=== PATIENT | female | born 1995 | race Caucasian/White ===

== ENCOUNTER 2017-12-09 18:36 | Emergency (ER) | payer OTHER ==
--- NOTE | 2017-12-09 19:09 | ED Physician Documentation ---
History of Present Illness - Stated complaint Stated Complaint: WEAKNESS - Chief complaint Chief Complaint: General - History obtained from History obtained from: Patient - History of Present Illness Timing: Today (Woke from a nap at 1730 today with weak/dizzy/sweats. Weakness is general, does not lateralize. Sudden onset global headache, not WHOL. Feels hot. Dizzyness is positional lightheadedness. One episode of vomiting.) Review of Systems Ten Systems: 10 systems reviewed and negative Constitutional: denies: Fever, Chills Cardiac: denies: Chest pain / pressure, Palpitations Respiratory: denies: Dyspnea, Cough GI: reports: Nausea, Vomiting. 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 : None HEENT: None Psych: None Musculoskeletal: None Derm: None - Past Surgical History Past Surgical History: No - Present Medications Home Medications: Ambulatory Orders Medication Instructions Recorded Confirmed Pnv No.122/Iron/Folic Acid 1 tab PO DAILY 06/29/16 06/29/16 [ Multi Tablet] Pnv95/Ferrous Fumarate/FA 1 each PO DAILY #30 tablet 06/29/16 [ Tablet] - Allergies Allergies/Adverse Reactions: Allergies Allergy/AdvReac Type Severity Reaction Status Date / Time No Known Drug Allergies Allergy Verified 12/09/17 18:46 - Social History Does the pt smoke?: No Smoking Status: Never smoker Does the pt drink ETOH?: No Does the pt have substance abuse?: No - Family History Family history: reports: Non contributory - Immunizations Immunizations are current?: Yes - POLST Patient has POLST: No PD ED PE NORMAL - Vitals Vital signs reviewed: Yes - General General: Alert and oriented X 3, No acute distress - HEENT HEENT: PERRL, EOMI - Neck Neck: Supple, no meningeal sign, No bony TTP - Cardiac Cardiac: RRR, No murmur - Respiratory Respiratory: No respiratory distress, Clear bilaterally - Abdomen Abdomen: Normal bowel sounds, Soft, Non tender - Back Back: No CVA TTP, No spinal TTP - Derm Derm: Normal color, Warm and dry - Extremities Extremities: No deformity, No tenderness to palpate, No edema, No calf tenderness / cord - Neuro Neuro: Alert and oriented 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, 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 Eye Opening: Spontaneous Motor: Obeys Commands Verbal: Oriented GCS Score: 15 - Psych Psych: Normal mood, Normal affect Results - Vitals Vitals: Vital Signs - 24 hr 12/09/17 12/09/17 12/09/17 18:38 19:53 21:20 Temperature 36.5 C 36.9 C Heart Rate 99 70 84 Respiratory 16 18 16 Rate Blood Pressure 119/80 112/79 111/86 H O2 Saturation 97 99 97 Oxygen O2 Source Room air - Labs Labs: Microbiology 12/09/17 20:30 CSF Culture - Preliminary Cerebral Spinal Fluid Laboratory Tests 12/09/17 12/09/17 12/09/17 19:26 19:26 19:26 WBC 7.8 RBC 4.43 Hgb 13.7 Hct 41.2 MCV 93.0 MCH 31.0 MCHC 33.3 RDW 12.8 Plt Count 284 MPV 7.6 L Neut # 4.6 Lymph # 2.3 Gibson # 0.7 Eos # 0.1 Baso # 0.1 Absolute Nucleated RBC 0.00 Nucleated RBC % 0.1 PT 10.5 INR 0.9 Sodium 139 Potassium 3.8 Chloride 104 Carbon Dioxide 27 Anion Gap 8.0 BUN 14 Creatinine 0.7 Estimated GFR (MDRD) 103 Glucose 97 Calcium 9.5 Total Bilirubin 0.8 AST 22 ALT 25 Alkaline Phosphatase 87 Total Protein 7.0 Albumin 4.5 Globulin 2.5 Albumin/Globulin Ratio 1.8 Lipase 31 Urine Color Urine Clarity Urine pH Ur Specific [place] Urine Protein Urine Glucose (UA) Urine Ketones Urine Occult Blood Urine Nitrite Urine Bilirubin Urine Urobilinogen Ur Leukocyte Esterase Ur Microscopic Review Urine Culture Comments Urine HCG, Qual CSF Color CSF Clarity Xanthrochromic CSF WBC CSF RBC CSF Cell Count Tube # CSF Glucose CSF Total Protein 12/09/17 12/09/17 19:28 20:30 WBC RBC Hgb Hct MCV MCH MCHC RDW Plt Count MPV Neut # Lymph # Gibson # Eos # Baso # Absolute Nucleated RBC Nucleated RBC % PT INR Sodium Potassium Chloride Carbon Dioxide Anion Gap BUN Creatinine Estimated GFR (MDRD) Glucose Calcium Total Bilirubin AST ALT Alkaline Phosphatase Total Protein Albumin Globulin Albumin/Globulin Ratio Lipase Urine Color YELLOW Urine Clarity CLEAR Urine pH 6.5 Ur Specific [place] 1.025 Urine Protein NEGATIVE Urine Glucose (UA) NEGATIVE Urine Ketones NEGATIVE Urine Occult Blood NEGATIVE Urine Nitrite NEGATIVE Urine Bilirubin NEGATIVE Urine Urobilinogen 0.2 (NORMAL) Ur Leukocyte Esterase NEGATIVE Ur Microscopic Review NOT INDICATED Urine Culture Comments NOT INDICATED Urine HCG, Qual NEGATIVE CSF Color COLORLESS CSF Clarity CLEAR Xanthrochromic ABSENT CSF WBC 1 CSF RBC 0 CSF Cell Count Tube # CSF TUBE# 3 CSF Glucose 57 CSF Total Protein 18 - Rads (name of study) CT Head Radiology: Discussed with rads (not C/W SAH. Could be C/W encephalitis.), EMP read contemporaneously (Possible low attenuation area left frontal cortex.) Procedures - Lumbar Puncture Position: Sitting Location: L3-L4 Anesthesia: Local lidocaine CSF: Clear Other: Sterile prep and drape, Patient tolerated well PD MEDICAL DECISION MAKING - ED course ED course: 22-year-old woman with acute onset headache and some other concerning symptoms. Presentation would be most concerning for subarachnoid hemorrhage which was not present on CT, but she did have a possible finding. This was discussed with the radiologist. I asked him what this might represent and he said early encephalitis. Given lack of MRI at this hour, we settled on spinal fluid which was collected. During this procedure patient admitted that recently her aunt had an episode where she had a syncopal episode and was found to have a large brain tumor and this may be weighing on her mind. She after medications here had no residual headache or symptoms and felt normal. Departure - Departure Disposition: 01 Home, Self Care Clinical Impression: Vomiting Qualifiers: Vomiting type: unspecified Vomiting Intractability: non-intractable Nausea presence: with nausea Qualified Code(s): R11.2 - Nausea with vomiting, unspecified Headache Qualifiers: Headache type: tension-type Headache chronicity pattern: acute headache Intractability: not intractable Qualified Code(s): G44.209 - Tension-type headache, unspecified, not intractable Condition: Good Record reviewed to determine appropriate education?: Yes Instructions: ED Cephalgia Unspecified Comments: Call your doctor to arrange a follow-up appointment, make the next available appointment. In the interim, return anytime if worse or if new symptoms develop. Discharge Date/Time: 12/09/17 21:22
[2017-12-09] MEDS ORDERED: HYDROcod/ACETAM 5/325 MG TABLET PO STA (19:17)
[2017-12-09] MEDS ORDERED: ONDANSETRON ODT 4 MG TABLET TL STA (19:17)
[2017-12-09 19:30] LABS: BASOPHILS # (AUTO) 0.1 10^3/uL (0.0-0.1); BASOPHILS % (AUTO) 0.7 %; EOSINOPHILS # (AUTO) 0.1 10^3/uL (0.0-0.7); EOSINOPHILS % (AUTO) 1.8 %; HGB - HEMOGLOBIN 13.7 g/dL (12.0-16.0); LYMPHOCYTES # (AUTO) 2.3 10^3/uL (1.5-3.5); LYMPHOCYTES % (AUTO) 29.2 %; MEAN CORPUSCULAR HGB CONC 33.3 g/dL (32.0-36.0); MEAN PLATELET VOLUME 7.6 fL (7.9-10.8); MONOCYTES # (AUTO) 0.7 10^3/uL (0.0-1.0); MONOCYTES % (AUTO) 9.2 %; NEUTROPHILS # (AUTO) 4.6 10^3/uL (1.5-6.6); NEUTROPHILS % (AUTO) 59.1 %; PLT - PLATELET COUNT 284 10^3/uL (130-450); RED BLOOD COUNT 4.43 10^6/uL (4.20-5.40); RED CELL DISTRIBUTION WIDTH 12.8 % (12.0-15.0); WHITE BLOOD COUNT 7.8 x10^3/uL (4.8-10.8)
[2017-12-09 19:34] LABS: BILIRUBIN,URINE NEGATIVE (NEGATIVE); GLUCOSE, URINE (UA) NEGATIVE (NEGATIVE); KETONES,URINE (UA) NEGATIVE (NEGATIVE); LEUKOCYTE ESTERASE, URINE NEGATIVE (NEGATIVE); NITRITE,URINE NEGATIVE (NEGATIVE); OCCULT BLOOD,URINE NEGATIVE (NEGATIVE); PH,URINE 6.5 PH (5.0-7.5); PROTEIN,URINE NEGATIVE (NEGATIVE); UROBILINOGEN,URINE 0.2 (NORMAL) E.U./dL (NORMAL)
[2017-12-09 19:36] LABS: INR 0.9 (0.8-1.2); PT - PROTHROMBIN TIME 10.5 secs (9.9-12.6)
[2017-12-09 19:38] LABS: CLARITY,URINE CLEAR (CLEAR); HCG UR QUAL NEGATIVE
[2017-12-09 19:43] LABS: ALBUMIN 4.5 g/dL (3.2-5.5); ALBUMIN/GLOBULIN RATIO 1.8 (1.0-2.2); BILIRUBIN,TOTAL 0.8 mg/dL (0.2-1.0); CALCIUM 9.5 mg/dL (8.5-10.3); CREATININE 0.7 mg/dL (0.4-1.0)
--- NOTE | 2017-12-09 20:09 | CT Preliminary Report ---
Exam: CT HEAD W/O Impression: Question of subtle, at the limits of detection, low attenuation in the right frontal cortex, ill defi debby. Brain MRI with and without contrast to be considered. SITE ID: [id number]
--- NOTE | 2017-12-09 20:13 | CT Report ---
EXAM: CT HEAD WITHOUT CONTRAST COMPARISON: None. CLINICAL HISTORY: Head pressure, dizziness, weak, vomiting,headache. TECHNIQUE: Axial CT images were obtained from the foramen magnum to the vertex without contrast. In accordance with CT protocol optimization, one or more of the following dose reduction techniques w ere utilized for this exam: automated exposure control, adjustment of mA and/or KV based on patient s ize, or use of iterative reconstructive technique. FINDINGS: No intracranial hemorrhage. No masses. No unexpected intra-or extra-axial fluid collections. Ventricular size is normal. There is subtle, at the limits of detection, ill-defined low-attenuation in the right frontal cortex, brain MRI with and without contrast to be considered. No dense vessels. No lytic or blastic bone lesions are seen. Visualized orbits, paranasal sinuses and mastoids are unremarkable. IMPRESSION: Question of subtle, at the limits of detection, low attenuation in the right frontal cortex, ill defi debby. Brain MRI with and without contrast to be considered. Referring Provider Line: [phone] SITE ID: [id number]
[2017-12-09] MEDS ORDERED: LIDOCAINE 2% 10 ML MDV ONE (20:36)
[2017-12-09 21:08] LABS: CSF TUBE # CSF TUBE# 3
[2017-12-09 21:09] LABS: CLARITY,CSF CLEAR (CLEAR); COLOR,CSF COLORLESS (COLORLESS); CSF XANTHOCHROMIA ABSENT (ABSENT); RED BLOOD CELL,CSF 0 /mm^3 (0-1); WHITE BLOOD CELL,CSF 1 /mm^3 (0-5)
[2017-12-09 21:15] LABS: CSF - GLUCOSE 57 mg/dL (45-70)
[2017-12-09 21:22] VITALS: BP 111/86
[2017-12-15 01:51] LABS: HSV 2 DNA NOT DETECTED; SOURCE CEREBROSPINAL FLUID
== END 2017-12-09 21:22 | disposition home or self-care (01) ==
LOC: ED 18:36
DX: G44.209 Tension-type headache, unspecified, not intractable (principal); R11.2 Nausea with vomiting, unspecified; R42 Dizziness and giddiness
CPT/HCPCS: 62270; 70450; 80053; 81003; 81025; 82945; 83690; 84157; 85025; 85610; 87070; 87205; 87529; 89051; 99283; 99284; A9270; Q0162; 81001; 87086

== ENCOUNTER 2018-02-04 16:13 | Inpatient (IN) | payer OTHER ==
[2018-02-04 17:09] LABS: BASOPHILS % (AUTO) 0.1 %; HGB - HEMOGLOBIN 13.9 g/dL (12.0-16.0); LYMPHOCYTES # (AUTO) 0.7 10^3/uL (1.5-3.5); MEAN CORPUSCULAR HEMOGLOBIN 31.4 pg (27.0-31.0); MEAN CORPUSCULAR HGB CONC 33.8 g/dL (32.0-36.0); MEAN CORPUSCULAR VOLUME 92.8 fL (81.0-99.0); MEAN PLATELET VOLUME 8.2 fL (7.9-10.8); MONOCYTES # (AUTO) 0.9 10^3/uL (0.0-1.0); MONOCYTES % (AUTO) 6.8 %; NEUTROPHILS % (AUTO) 88.1 %; PLT - PLATELET COUNT 251 10^3/uL (130-450); RED BLOOD COUNT 4.44 10^6/uL (4.20-5.40); RED CELL DISTRIBUTION WIDTH 12.5 % (12.0-15.0); WHITE BLOOD COUNT 13.7 x10^3/uL (4.8-10.8)
[2018-02-04 17:12] LABS: BILIRUBIN,URINE NEGATIVE (NEGATIVE); GLUCOSE, URINE (UA) NEGATIVE (NEGATIVE); KETONES,URINE (UA) NEGATIVE (NEGATIVE); LEUKOCYTE ESTERASE, URINE NEGATIVE (NEGATIVE); NITRITE,URINE NEGATIVE (NEGATIVE); OCCULT BLOOD,URINE NEGATIVE (NEGATIVE); PROTEIN,URINE NEGATIVE (NEGATIVE); UROBILINOGEN,URINE 0.2 (NORMAL) E.U./dL (NORMAL)
--- NOTE | 2018-02-04 17:13 | XRAY Report ---
Procedure Date: 02/04/2018 Accession Number: [id number] / [id number] Procedure: XR - Chest 1 View X-Ray CPT Code: 04060 FULL RESULT: EXAM: CHEST RADIOGRAPHY EXAM DATE: 02/04/2018 04:55 PM. CLINICAL HISTORY: Fever, right sided chest pain. COMPARISON: 02/04/2018. TECHNIQUE: 1 view. FINDINGS: Lungs/Pleura: No focal opacities evident. No pleural effusion. No pneumothorax. Mediastinum: Within exam limitations, the cardiomediastinal contour is normal. Other: None. IMPRESSION: Normal single view chest. RADIA
[2018-02-04 17:15] LABS: CLARITY,URINE CLEAR (CLEAR)
[2018-02-04 17:17] LABS: ALBUMIN 4.4 g/dL (3.2-5.5); ALBUMIN/GLOBULIN RATIO 1.5 (1.0-2.2); BILIRUBIN,TOTAL 0.7 mg/dL (0.2-1.0); CALCIUM 9.2 mg/dL (8.5-10.3); CREATININE 0.6 mg/dL (0.4-1.0); TOTAL PROTEIN 7.4 g/dL (6.7-8.2)
[2018-02-04] MEDS ORDERED: SODIUM CHLORIDE 0.9% 1,000 ML IV ONE ×2 (17:22→18:27)
[2018-02-04] MEDS ORDERED: ACETAMINOPHEN 325 MG TABLET PO STA (17:22)
[2018-02-04] MEDS ORDERED: VANCOMYCIN INJ 1 GM in SODIUM CHLORIDE 0.9% 500 ML IV STA (17:27)
[2018-02-04] MEDS ORDERED: KETOROLAC 60 MG/2 ML VIAL IVP STA (18:25)
--- NOTE | 2018-02-04 19:24 | ED Physician Documentation ---
History of Present Illness - Stated complaint Stated Complaint: R SIDE PX - Chief complaint Chief Complaint: General - History obtained from History obtained from: Patient - History of Present Illness Timing: Today - Additonal information Additional information: Patient is a 23 year old female with no significant past medical history who is presenting to the emergency department for fever and right sided breast pain. patient states that she is still breast feeding and that the symptoms started this morning. Patient stated that she felt warm and that she had flu like symptoms. patient denies having symptoms like this before in the past. Review of Systems Constitutional: reports: Fever, Chills, Myalgias Eyes: reports: Reviewed and negative Ears: denies: Ear pain, Drainage/discharge Nose: denies: Congestion Throat: denies: Sore throat Cardiac: denies: Chest pain / pressure Respiratory: denies: Dyspnea, Cough, Wheezing GI: denies: Nausea, Vomiting : denies: Dysuria, Frequency, Hesitancy Skin: reports: Rash Neurologic: reports: Generalized weakness. 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 HEENT: None Psych: None Musculoskeletal: None Derm: None - Past Surgical History Past Surgical History: No - Present Medications Home Medications: Ambulatory Orders Medication Instructions Recorded Confirmed Pnv No.122/Iron/Folic Acid 1 tab PO DAILY 06/29/16 06/29/16 [ Multi Tablet] Pnv95/Ferrous Fumarate/FA 1 each PO DAILY #30 tablet 06/29/16 [ Tablet] - Allergies Allergies/Adverse Reactions: Allergies Allergy/AdvReac Type Severity Reaction Status Date / Time No Known Drug Allergies Allergy Verified 12/09/17 18:46 - Social History Does the pt smoke?: No Smoking Status: Never smoker Does the pt drink ETOH?: No Does the pt have substance abuse?: No - Immunizations Immunizations are current?: Yes - POLST Patient has POLST: No PD ED PE NORMAL - Vitals Vital signs reviewed: Yes - General General: Alert and oriented X 3 - HEENT HEENT: Atraumatic - Neck Neck: Supple, no meningeal sign - Extremities Extremities: No deformity - Neuro Neuro: Alert and oriented X 3, No motor deficit, Normal speech Eye Opening: Spontaneous Motor: Obeys Commands - Psych Psych: Normal mood PD ED PE EXPANDED - General General: Alert - HEENT HEENT: Dry mucous membranes - Cardiac Cardiac: Tachy, Chest wall TTP (mild tenderness to palpation of right breast) - Respiratory Respiratory: Clear to ausultation joseph - Abdomen Abdomen: No: Tender to palpation, Rebound, Guarding - Derm Derm: Rash (mild erythema, of right breast) Results - Vitals Vitals: Vital Signs - 24 hr 02/04/18 02/04/18 02/04/18 16:20 17:12 17:52 Temperature 37.9 C H 39 C H 39.2 C H Heart Rate 140 H 129 H 134 H Respiratory 18 26 H 19 Rate Blood Pressure 114/70 111/71 99/74 O2 Saturation 97 99 98 02/04/18 02/04/18 18:26 19:20 Temperature 39.4 C H 38.3 C H Heart Rate 132 H 139 H Respiratory 28 H 21 Rate Blood Pressure 103/62 100/51 L O2 Saturation 96 97 Oxygen O2 Source Room air - Labs Labs: Laboratory Tests 02/04/18 02/04/18 02/04/18 16:47 16:47 16:47 WBC 13.7 H RBC 4.44 Hgb 13.9 Hct 41.2 MCV 92.8 MCH 31.4 H MCHC 33.8 RDW 12.5 Plt Count 251 MPV 8.2 Neut # (Auto) 12.0 H Lymph # (Auto) 0.7 L [place] # (Auto) 0.9 Eos # (Auto) 0.0 Baso # (Auto) 0.0 Absolute Nucleated RBC 0.00 Nucleated RBC % 0.0 Sodium 136 Potassium 3.4 L Chloride 105 Carbon Dioxide 23 Anion Gap 8.0 BUN 15 Creatinine 0.6 Estimated GFR (MDRD) 122 Glucose 133 H Lactic Acid 2.7 H Calcium 9.2 Total Bilirubin 0.7 AST 27 ALT 26 Alkaline Phosphatase 74 Total Protein 7.4 Albumin 4.4 Globulin 3.0 Albumin/Globulin Ratio 1.5 Lipase 27 Urine Color Urine Clarity Urine pH Ur Specific [place] Urine Protein Urine Glucose (UA) Urine Ketones Urine Occult Blood Urine Nitrite Urine Bilirubin Urine Urobilinogen Ur Leukocyte Esterase Ur Microscopic Review Urine Culture Comments Influenza A (Rapid) Influenza B (Rapid) 02/04/18 02/04/18 17:09 17:09 WBC RBC Hgb Hct MCV MCH MCHC RDW Plt Count MPV Neut # (Auto) Lymph # (Auto) [place] # (Auto) Eos # (Auto) Baso # (Auto) Absolute Nucleated RBC Nucleated RBC % Sodium Potassium Chloride Carbon Dioxide Anion Gap BUN Creatinine Estimated GFR (MDRD) Glucose Lactic Acid Calcium Total Bilirubin AST ALT Alkaline Phosphatase Total Protein Albumin Globulin Albumin/Globulin Ratio Lipase Urine Color YELLOW Urine Clarity CLEAR Urine pH 7.0 Ur Specific [place] 1.015 Urine Protein NEGATIVE Urine Glucose (UA) NEGATIVE Urine Ketones NEGATIVE Urine Occult Blood NEGATIVE Urine Nitrite NEGATIVE Urine Bilirubin NEGATIVE Urine Urobilinogen 0.2 (NORMAL) Ur Leukocyte Esterase NEGATIVE Ur Microscopic Review NOT INDICATED Urine Culture Comments NOT INDICATED Influenza A (Rapid) Negative Influenza B (Rapid) Negative PD MEDICAL DECISION MAKING - ED course Complexity details: reviewed old records, reviewed results, re-evaluated patient , considered differential, d/w patient, d/w senior health consultant ED course: patient was seen and examined at bedside. Patient was placed on a monitor. Iv access was gained and labs were drawn. Patient was started on a fluid bolus. chest x-ray was performed and was within normal limits. blood cultures were drawn and urine was collected. Patient's did have a leukocytosis and lactic acidosis. patient was started on a second liter of fluid. chest x-ray was within normal limits. Patient's only symptoms was the breast pain so patient was started on vancomycin for mastitis. Hospitalist was contacted and the case was discussed with her. patient was admitted for further evaluation and care. - Sepsis Event Vital Signs: Vital Signs - 24 hr 02/04/18 02/04/18 02/04/18 16:20 17:12 17:52 Temperature 37.9 C H 39 C H 39.2 C H Heart Rate 140 H 129 H 134 H Respiratory 18 26 H 19 Rate Blood Pressure 114/70 111/71 99/74 O2 Saturation 97 99 98 02/04/18 02/04/18 18:26 19:20 Temperature 39.4 C H 38.3 C H Heart Rate 132 H 139 H Respiratory 28 H 21 Rate Blood Pressure 103/62 100/51 L O2 Saturation 96 97 Oxygen O2 Source Room air Departure - Departure Disposition: 66 [facility] DC/Xfer Clinical Impression: Mastitis during , SIRS (systemic inflammatory response syndrome) Condition: Stable Discharge Date/Time: 02/04/18 20:30
[2018-02-04] MEDS ORDERED: SODIUM CHLORIDE FLUSH 0.9% 10 ML SYRINGE IVP PRN (19:33)
[2018-02-04] MEDS ORDERED: PROCHLORPERAZINE 10 MG/2 ML VIAL IVP PRN (19:33)
[2018-02-04] MEDS ORDERED: CEFEPIME 2 GM in SODIUM CHLORIDE 0.9% MINIBAG 100 ML IV STA (19:38)
[2018-02-04] MEDS ORDERED: VANCOMYCIN PER PHARMACY 0.1 GM in SODIUM CHLORIDE 0.9% 250 ML IV STA (19:38)
[2018-02-04] MEDS ORDERED: ACETAMINOPHEN 1,000 MG/100 ML 100 ML IV PRN (19:50)
[2018-02-04 20:11] LABS: INR 1.2 (0.8-1.2); PT - PROTHROMBIN TIME 13.2 secs (9.9-12.6)
[2018-02-04] MEDS ORDERED: VANCOMYCIN PER PHARMACY 0.1 GM in SODIUM CHLORIDE 0.9% 250 ML IV SCH (20:17)
[2018-02-04] MEDS: D5NS W/20 MEQ KCL 1,000 ML IV SCH (20:42)
[2018-02-04] MEDS: ceFAZolin 2 GM/50 ML 2 GM/50 ML BAG IV SCH (20:42)
[2018-02-04] MEDS ORDERED: FAMOTIDINE 20 MG/50 ML 50 ML IV SCH (21:00)
[2018-02-04] MEDS: metroNIDAZOLE 500 MG/100 ML 500 MG/100 ML BAG IV SCH (21:30)
[2018-02-04 22:57] LABS: ALBUMIN 3.1 g/dL (3.2-5.5); ALBUMIN/GLOBULIN RATIO 1.2 (1.0-2.2); BILIRUBIN,TOTAL 0.6 mg/dL (0.2-1.0); CALCIUM 7.9 mg/dL (8.5-10.3); CREATININE 0.8 mg/dL (0.4-1.0); TOTAL PROTEIN 5.7 g/dL (6.7-8.2)
--- NOTE | 2018-02-05 00:25 | HISTORY & PHYSICAL EXAMINATION ---
DATE OF SERVICE: 02/04/2018 Physician: Rere Garcia MD HISTORY OF PRESENT ILLNESS: This is a 23-year-old white female with a negative past medical history. She is breast feeding her second baby, who is nearly 1-year-old. This morning she awoke with pain in the right lateral breast area, and as the day went on she felt more weak and tired with worse pain in the right breast and axillary area, to the point of being unable to raise the right arm without severe pain. She started to have shaking chills and presented to the emergency room. She was found to have a fever of 39.4, tachycardic at a heart rate of 140 in sinus tachycardia, with borderline low blood pressure of 99/74. The right breast was felt to be the source of an infection and blood tests showed an elevated lactic acid level and she is being admitted for sepsis and mastitis. PAST MEDICAL HISTORY: Negative. ALLERGIES: NONE. MEDICATIONS: vitamins and control pills. FAMILY HISTORY: No inherited diseases. SOCIAL HISTORY: She is a nonsmoker, who never smoked, uses no alcohol, uses no illicit drugs. She lives at home with her , 3-year-old child, and a [id number] child. REVIEW OF SYSTEMS: A comprehensive review of systems was performed and the pertinent positives are in the HPI. PHYSICAL EXAMINATION GENERAL: Young white female who is in mild distress. VITAL SIGNS: Blood pressure 109/67, heart rate 110-126 in sinus tachycardia. Current temperature 37.7, respiratory rate 15, room air saturation 97%. HEENT: Unremarkable. Oral mucosa is moist. NECK: Without JVD or carotid bruits. LUNGS: Clear. HEART: Sounds normal. No murmur. BREASTS: The right breast has an area of redness in the right lateral area and the right breast is edematous and mildly tender to touch. The left breast appears normal. There is no axillary pain or adenopathy. ABDOMEN: Soft with positive bowel sounds. Nontender. EXTREMITIES: No edema. NEUROLOGIC: Intact. LABORATORY DATA: Normal electrolytes except potassium 3.4. Lactic acid 2.7. INR 1.2. Liver tests normal. White blood count 13.7 with a left shift, hemoglobin 13.9, platelet count 251. Urinalysis unremarkable. Influenza A and B negative. Chest x-ray: No active disease. IMPRESSION 1. Sepsis by virtue of fever, elevated WBC and lactic acid level, and signs of infection. 2. Mastitis. The patient states that she has been trying all day to "unplug the right breast and thinks that she has just accomplished this", the milk was thrown out. 3. Tachycardia. This is likely from her fever and possible volume depletion. PLAN 1. Admit the patient to the ICU, on telemetry. 2. Continue IV fluids with aggressive crystalloid volume placement 3. Continue a sepsis bundle, including followup of her lactic acid level in 3 hours and 6 hours. 4. Begin antibiotics, focused at the mastitis as the source. Therefore, will use Vancomycin and Ancef and Flagyl (per Sepsis protocol) 5. Blood cultures were already obtained in the emergency room, two sets. 6. We will also try to obtain a sample of milk ejection from the right breast for bacterial culture. 7. Follow her sedimentation rate, CMP, and CBC daily. CODE STATUS: FULL CODE. DEEP VENOUS THROMBOSIS PROPHYLAXIS: SCDs. ATTESTATION: The patient is expected to be discharged or transferred to another facility within 96 hours: Yes. TD: 02/04/2018 22:55 GEN
[2018-02-05] MEDS: SODIUM CHLORIDE FLUSH 0.9% 10 ML SYRINGE IVP SCH ×3 (01:51→16:44)
[2018-02-05] MEDS ORDERED: VANCOMYCIN INJ 0.75 GM in SODIUM CHLORIDE 0.9% 250 ML IV SCH (02:00)
[2018-02-05] MEDS: ceFAZolin 2 GM/50 ML 2 GM/50 ML BAG IV SCH (04:26)
[2018-02-05] MEDS: IBUPROFEN 600 MG TABLET PO PRN ×2 (04:32→12:26)
[2018-02-05] MEDS: metroNIDAZOLE 500 MG/100 ML 500 MG/100 ML BAG IV SCH (05:06)
[2018-02-05 05:41] LABS: BASOPHILS % (AUTO) 0.2 %; EOSINOPHILS % (AUTO) 0.1 %; HGB - HEMOGLOBIN 11.6 g/dL (12.0-16.0); LYMPHOCYTES # (AUTO) 1.2 10^3/uL (1.5-3.5); LYMPHOCYTES % (AUTO) 8.5 %; MEAN CORPUSCULAR HEMOGLOBIN 31.3 pg (27.0-31.0); MEAN CORPUSCULAR HGB CONC 33.3 g/dL (32.0-36.0); MEAN CORPUSCULAR VOLUME 94.2 fL (81.0-99.0); MEAN PLATELET VOLUME 7.5 fL (7.9-10.8); MONOCYTES % (AUTO) 7.1 %; NEUTROPHILS # (AUTO) 12.2 10^3/uL (1.5-6.6); NEUTROPHILS % (AUTO) 84.1 %; PLT - PLATELET COUNT 204 10^3/uL (130-450); RED CELL DISTRIBUTION WIDTH 12.6 % (12.0-15.0); WHITE BLOOD COUNT 14.5 x10^3/uL (4.8-10.8)
[2018-02-05 05:54] LABS: CALCIUM 7.8 mg/dL (8.5-10.3); CREATININE 0.7 mg/dL (0.4-1.0); MAGNESIUM 1.8 mg/dL (1.7-2.8); PHOSPHORUS 1.6 mg/dL (2.5-4.6)
[2018-02-05] MEDS ORDERED: POTASSIUM CHLORIDE 20 MEQ TABLET PO ONE (06:26)
[2018-02-05] MEDS: NEUTRA-PHOS 250 MG TABLET PO SCH ×2 (06:53→08:52)
[2018-02-05] MEDS ORDERED: FAMOTIDINE 20 MG TABLET PO SCH (08:00)
[2018-02-05] MEDS: D5NS W/20 MEQ KCL 1,000 ML IV SCH ×2 (08:53→16:43)
[2018-02-05] MEDS: VANCOMYCIN INJ 1 GM in SODIUM CHLORIDE 0.9% 250 ML IV SCH ×2 (10:11→18:17)
--- NOTE | 2018-02-05 12:09 | PROVIDER PROGRESS NOTE ---
Assessment/Plan - Problem List (1) Sepsis Qualifiers: Sepsis type: sepsis due to unspecified organism Qualified Code(s): A41.9 - Sepsis, unspecified organism Assessment/Plan: Patient presented with fever of 39.4, tachycardia of 132, tachypneic at respiratory rate of 28 and with borderline hypotension. On presentation the patient's lactic acid was elevated at 2.7 and her white blood cell count was 13.7. The patient had sepsis and source appeared to be mastitis. Patient has been breast-feeding and began having pain in the right breast with swelling. The patient was admitted to the intensive care unit for severe sepsis due to mastitis. Plan: Continue IV vancomycin for treatment of mastitis Follow-up breast milk culture Continue to encourage patient to pump breastmilk to ensure that no ducts do not get clogged IVFs (2) Mastitis Assessment/Plan: Presented with sepsis Started on IV vancomycin for severe infection Awaiting milk cultures Switch to Med/Surg status Still tachycardic today WBC worsening Feels better Still tachycardic Likely needs 1 more day of IV abx and then can consider switching to PO abx at discharge - Current Meds Current Meds: Current Medications Generic Name Dose Route Start Last Admin Trade Name Freq PRN Reason Stop Dose Admin Potassium Chloride/Dextrose/Sod Cl 1,000 mls @ 150 mls/hr 02/04/18 20:00 05/16 08:53 IV 150 mls/hr .[id number] DERIK Administration Vancomycin HCl 1 gm/ Sodium 250 mls @ 130 mls/hr 02/05/18 10:00 02/05/18 10: 11 Chloride IV 130 mls/hr Q8H DERIK Administration Ibuprofen 600 mg 02/04/18 19:33 02/05/18 04:32 Motrin PO 600 mg Q6HR PRN Administration Pain 1 to 4 Sodium Chloride 10 ml 02/05/18 01:00 02/05/18 08:54 Normal Saline Flush 0.9% IVP 10 ml 0100,[id number],1700 DERIK Administration Sodium Chloride 10 ml 02/04/18 19:33 02/04/18 20:44 Normal Saline Flush 0.9% IVP 10 ml PRN PRN Administration NEEDED PER PROVIDER ORDERS - Lab Result Lab results reviewed: Yes Fish Bone Diagrams: 02/05/18 05:30 07/10/18 05:30 - Diagnostic Imaging Results Diagnostic Imaging Results: Final report reviewed - Additional Planning Condition/Complexity: Stable My Orders: My Active Orders 02/05/18 07:45 Acetaminophen [Tylenol] 650 mg PO Q4HR PRN 02/05/18 11:00 Vitamin [Trinatal Rx 1] 1 tab PO DAILYWM Saccharomyces Boulardii [Florastor] 250 mg PO BIDWM Plan Discussed with:: Patient Time Spent: 31-60 minutes Subjective - Subjective Patient Reports: Feeling Better, Resting Comfortably, Other (She states that her pain in right breast has improved and she feels like the clogged up duct has unclogged.) Nursing Reports: No Complaints Objective Vital Signs: Vital Signs - 24 hr 02/04/18 02/04/18 02/04/18 20:27 21:00 22:00 Temperature 37.7 C H Heart Rate [ 137 H 126 H 109 H Monitoring electrodes] Respiratory 15 24 15 Rate Blood Pressure 109/60 112/69 109/67 [Right Brachial artery] O2 Saturation 97 02/04/18 02/05/18 02/05/18 23:00 00:00 01:00 Temperature Heart Rate [ 98 106 H 105 H Monitoring electrodes] Respiratory 16 17 16 Rate Blood Pressure 90/57 L 107/65 109/73 [Right Brachial artery] O2 Saturation 02/05/18 02/05/18 02/05/18 01:54 02:00 03:00 Temperature 37.1 C Heart Rate [ 114 H 112 H 113 H Monitoring electrodes] Respiratory 21 21 30 H Rate Blood Pressure 98/61 100/57 L [Right Brachial artery] O2 Saturation 97 02/05/18 02/05/18 02/05/18 04:00 04:34 05:09 Temperature 37.4 C Heart Rate [ 110 H 135 H 128 H Monitoring electrodes] Respiratory 19 27 H 25 H Rate Blood Pressure 106/63 113/73 [Right Brachial artery] O2 Saturation 02/05/18 02/05/18 02/05/18 06:00 07:00 08:00 Temperature 37.1 C Heart Rate [ 104 H 104 H 106 H Monitoring electrodes] Respiratory 16 16 20 Rate Blood Pressure 95/61 112/80 110/72 [Right Brachial artery] O2 Saturation 98 02/05/18 02/05/18 02/05/18 09:00 10:00 12:00 Temperature 36.8 C Heart Rate [ 110 H 104 H 100 Monitoring electrodes] Respiratory 16 12 16 Rate Blood Pressure 97/61 99/63 117/68 [Right Brachial artery] O2 Saturation 97 Oxygen O2 Source Room air I&O (Last 24 Hrs): Intake and Output Totals x24h 02/03/18 02/04/18 02/05/18 23:59 23:59 23:59 Intake Total 450 2180 Output Total 750 Balance 450 1430 General: Alert, Oriented x3, Cooperative HEENT: Atraumatic, PERRLA, EOMI, Mucous membr. moist/pink Neck: Supple, No JVD, No thyromegaly, +2 carotid pulse wo bruit Lymphatic: no adenopathy Neuro: Alert, Non Focal, CN 2-12 Grossly Intact, Oriented Times 3 Cardiovascular: No murmurs, Other (Tachycardic) Respiratory: Chest non-tender, No respiratory distress, Breath sounds nml Abdomen: Normal bowel sounds, Soft, No tenderness, No hepatospenomegaly Extremities: No clubbing, No cyanosis, No edema, Normal pulses, No tenderness/ swelling Comments/Notes: No obvious breast swelling or erythema - Results Results: Laboratory Results WBC 14.5 x10^3/uL (4.8-10.8) H 02/05/18 05:30 RBC 3.70 10^6/uL (4.20-5.40) L 02/05/18 05:30 Hgb 11.6 g/dL (12.0-16.0) L 02/05/18 05:30 Hct 34.9 % (37.0-47.0) L 02/05/18 05:30 MCV 94.2 fL (81.0-99.0) 02/05/18 05:30 MCH 31.3 pg (27.0-31.0) H 02/05/18 05:30 MCHC 33.3 g/dL (32.0-36.0) 02/05/18 05:30 RDW 12.6 % (12.0-15.0) 02/05/18 05:30 Plt Count 204 10^3/uL (130-450) 02/05/18 05:30 MPV 7.5 fL (7.9-10.8) L 02/05/18 05:30 Neut # (Auto) 12.2 10^3/uL (1.5-6.6) H 02/05/18 05:30 Lymph # (Auto) 1.2 10^3/uL (1.5-3.5) L 02/05/18 05:30 [place] # (Auto) 1.0 10^3/uL (0.0-1.0) 02/05/18 05:30 Eos # (Auto) 0.0 10^3/uL (0.0-0.7) 02/05/18 05:30 Baso # (Auto) 0.0 10^3/uL (0.0-0.1) 02/05/18 05:30 Absolute Nucleated RBC 0.00 x10^3/uL 02/05/18 05:30 Nucleated RBC % 0.0 /100WBC 02/05/18 05:30 ESR 10 mm/Hr (0-20) 02/05/18 05:30 PT 13.2 secs (9.9-12.6) H 02/04/18 19:57 INR 1.2 (0.8-1.2) 02/04/18 19:57 APTT 27.9 secs (24.9-33.3) 02/04/18 19:57 Sodium 137 mmol/L (135-145) 02/05/18 05:30 Potassium 3.3 mmol/L (3.5-5.0) L 02/05/18 05:30 Chloride 111 mmol/L (101-111) 02/05/18 05:30 Carbon Dioxide 21 mmol/L (21-32) 02/05/18 05:30 Anion Gap 5.0 (6-13) L 02/05/18 05:30 BUN 9 mg/dL (6-20) 02/05/18 05:30 Creatinine 0.7 mg/dL (0.4-1.0) 02/05/18 05:30 Estimated GFR (MDRD) 102 (>89) 02/05/18 05:30 Glucose 134 mg/dL (70-100) H 02/05/18 05:30 Lactic Acid 1.6 mmol/L (0.5-2.2) 02/05/18 05:30 Calcium 7.8 mg/dL (8.5-10.3) L 02/05/18 05:30 Phosphorus 1.6 mg/dL (2.5-4.6) L 02/05/18 05:30 Magnesium 1.8 mg/dL (1.7-2.8) 02/05/18 05:30 Total Bilirubin 0.6 mg/dL (0.2-1.0) 02/04/18 22:41 AST 24 IU/L (10-42) 02/04/18 22:41 ALT 20 IU/L (10-60) 02/04/18 22:41 Alkaline Phosphatase 50 IU/L (42-121) 02/04/18 22:41 Total Protein 5.7 g/dL (6.7-8.2) L 02/04/18 22:41 Albumin 3.0 g/dL (3.2-5.5) L 02/05/18 05:30 Globulin 2.6 g/dL (2.1-4.2) 02/04/18 22:41 Albumin/Globulin Ratio 1.2 (1.0-2.2) 02/04/18 22:41 Lipase 27 U/L (22-51) 02/04/18 16:47 Urine Color YELLOW 02/04/18 17:09 Urine Clarity CLEAR (CLEAR) 02/04/18 17:09 Urine pH 7.0 PH (5.0-7.5) 02/04/18 17:09 Ur Specific [place] 1.015 (1.002-1.030) 02/04/18 17:09 Urine Protein NEGATIVE mg/dL (NEGATIVE) 02/04/18 17:09 Urine Glucose (UA) NEGATIVE mg/dL (NEGATIVE) 02/04/18 17:09 Urine Ketones NEGATIVE mg/dL (NEGATIVE) 02/04/18 17:09 Urine Occult Blood NEGATIVE (NEGATIVE) 02/04/18 17:09 Urine Nitrite NEGATIVE (NEGATIVE) 02/04/18 17:09 Urine Bilirubin NEGATIVE (NEGATIVE) 02/04/18 17:09 Urine Urobilinogen 0.2 (NORMAL) E.U./dL (NORMAL) 02/04/18 17:09 Ur Leukocyte Esterase NEGATIVE (NEGATIVE) 02/04/18 17:09 Ur Microscopic Review NOT INDICATED 02/04/18 17:09 Urine Culture Comments NOT INDICATED 02/04/18 17:09 Influenza A (Rapid) Negative (Negative) 02/04/18 17:09 Influenza B (Rapid) Negative (Negative) 02/04/18 17:09 ABX Reporting Has patient been on IV antibiotics over the past 48 hours?: No Current Medications - Current Medications Current Medications: Active Medications Generic Name Dose Route Start Last Admin Trade Name Freq PRN Reason Stop Dose Admin Acetaminophen 650 mg 02/05/18 07:45 Tylenol PO Q4HR PRN Pain or Fever > 38C (100.4F) Potassium Chloride/Dextrose/Sod Cl 1,000 mls @ 150 mls/hr 02/04/18 20:00 05/16 08:53 IV 150 mls/hr .Q6H40M DERIK Administration Vancomycin HCl 1 gm/ Sodium 250 mls @ 130 mls/hr 02/05/18 10:00 02/05/18 10: 11 Chloride IV 130 mls/hr Q8H DERIK Administration Ibuprofen 600 mg 02/04/18 19:33 02/05/18 12:26 Motrin PO 600 mg Q6HR PRN Administration Pain 1 to 4 Multivit/Folic Acid/Iron 1 tab 02/05/18 11:00 02/05/18 12:25 Trinatal Rx 1 PO 1 tab DAILYWM DERIK Administration Prochlorperazine Edisylate 10 mg 02/04/18 19:33 Compazine Inj IVP Q6HR PRN Nausea / Vomiting Saccharomyces Boulardii 250 mg 02/05/18 11:00 02/05/18 12:26 Florastor PO 250 mg BIDWM DERIK Administration Sodium Chloride 10 ml 02/05/18 01:00 02/05/18 08:54 Normal Saline Flush 0.9% IVP 10 ml 0100,0900,1700 DERIK Administration Sodium Chloride 10 ml 02/04/18 19:33 02/04/18 20:44 Normal Saline Flush 0.9% IVP 10 ml PRN PRN Administration NEEDED PER PROVIDER ORDERS Pnv No.122/Iron/Folic Acid [ Multi Tablet] 1 tab PO DAILY 06/29/16
[2018-02-05] MEDS: PRENATAL VITAMIN TABLET PO SCH (12:25)
[2018-02-05] MEDS: SACCHAROMYCES BOULARDII 250 MG CAPSULE PO SCH ×2 (12:26→16:43)
[2018-02-05] MEDS: ACETAMINOPHEN 325 MG TABLET PO PRN (15:13)
[2018-02-06] MEDS: D5NS W/20 MEQ KCL 1,000 ML IV SCH ×4 (01:00→07:57)
[2018-02-06] MEDS: SODIUM CHLORIDE FLUSH 0.9% 10 ML SYRINGE IVP SCH ×2 (01:02→07:57)
[2018-02-06] MEDS: VANCOMYCIN INJ 1 GM in SODIUM CHLORIDE 0.9% 250 ML IV SCH ×2 (01:49→10:12)
[2018-02-06] MEDS: ACETAMINOPHEN 325 MG TABLET PO PRN (04:36)
[2018-02-06 07:51] VITALS: BP 107/74
[2018-02-06] MEDS: PRENATAL VITAMIN TABLET PO SCH (07:56)
[2018-02-06] MEDS: SACCHAROMYCES BOULARDII 250 MG CAPSULE PO SCH (07:56)
[2018-02-06 08:12] LABS: BASOPHILS % (AUTO) 0.2 %; EOSINOPHILS # (AUTO) 0.1 10^3/uL (0.0-0.7); EOSINOPHILS % (AUTO) 0.9 %; HGB - HEMOGLOBIN 11.6 g/dL (12.0-16.0); LYMPHOCYTES % (AUTO) 16.3 %; MEAN CORPUSCULAR HEMOGLOBIN 31.8 pg (27.0-31.0); MEAN CORPUSCULAR HGB CONC 33.7 g/dL (32.0-36.0); MEAN CORPUSCULAR VOLUME 94.4 fL (81.0-99.0); MEAN PLATELET VOLUME 8.1 fL (7.9-10.8); MONOCYTES # (AUTO) 0.9 10^3/uL (0.0-1.0); MONOCYTES % (AUTO) 7.4 %; NEUTROPHILS # (AUTO) 9.2 10^3/uL (1.5-6.6); NEUTROPHILS % (AUTO) 75.2 %; PLT - PLATELET COUNT 205 10^3/uL (130-450); RED BLOOD COUNT 3.63 10^6/uL (4.20-5.40); RED CELL DISTRIBUTION WIDTH 12.8 % (12.0-15.0); WHITE BLOOD COUNT 12.3 x10^3/uL (4.8-10.8)
[2018-02-06 09:47] LABS: VANCOMYCIN,TROUGH 9.9 ug/mL (10.0-20.0)
--- NOTE | 2018-02-06 10:39 | Discharge Plan ---
Discharge Plan Disposition: Home, Self Care Condition: Stable Prescriptions: Dicloxacillin Sodium 500 mg PO QID #40 capsule Diet: Regular Activity Restrictions: No Restrictions Shower Restrictions: No Driving Restrictions: No Additional Instructions or Follow Up instructions: You presented to the emergency department with sepsis due to mastitis in your right breast. You were treated here with IV antibiotics for 2 days and seemed to have improved significantly. We are discharging home with an additional 10 days of oral antibiotics that you need to take 4 times a day. We advised that you pumped breast milk and then dump after each dose of the medication prior to feeding her child. Also recommend that you use hot packs and massaging of your breast to help with symptoms. You can take Tylenol at home for any pain. Please follow-up with your primary care physician once you have completed treatment to ensure that your infection completely resolves. No Smoking: If you smoke, Please STOP! Call for help.
--- NOTE | 2018-02-06 12:39 | DISCHARGE SUMMARY ---
Discharge Summary Admit Date: 02/04/18 Discharge Date: 02/06/18 Discharging Provider: Cj Mejia MD Code Status: Attempt Resuscitation Condition at Discharge: Stable Discharge Disposition: 01 Home, Self Care - DIAGNOSES Admission Diagnoses: 1. Sepsis 2. Mastitis Discharge Diagnoses with Status of Each Condition: 1. Sepsis: Resolved 2. Mastitis: Improving - HPI History of Present Illness: Patient is a 23-year-old female with a negative past medical history. She is breast-feeding her second baby who is nearly 1 years old. This morning she woke with pain in the lateral right breast area, and as the day went on she felt more weak and tired with worse pain in the right breast and axillary area, to the point being unable to raise the right arm without severe pain. She started to have shaking chills and presented to the emergency department. She was found to have a fever of 39.4, she was tachycardic with a heart rate of 140 in sinus tachycardia, she had a borderline blood pressure of 99/74, she was tachypneic with a leukocytosis and an elevated lactic acid. The patient was admitted to the intensive care unit with sepsis secondary to mastitis. - HOSPITAL COURSE Hospital Course: The patient was admitted to the ICU for sepsis secondary to mastitis. The patient was treated with IV antibiotics catered towards gram-positive organism with vancomycin. The patient was also given IV fluids. She was instructed to continue pumping breast milk while she was hospitalized and massaging the area where she was having pain. She was also given a hot compress to the area. Over the course of the next 2 days the patient had improvement in her symptoms her fevers began to resolve her tachycardia improved. The patient's leukocytosis also improved slightly. The patient did have blood cultures on presentation which were negative. We also sent cultures from the patient's milk which had not returned at the time of discharge. The patient was significantly improved and discharged home on 02/06/2018 with dicloxacillin 500 mg 4 times a day for the next 10 days. The patient was also instructed to continue with massaging, pumping and hot compress. She was instructed to pump and dump before feeding her child while she is on antibiotics. The patient will follow up with her primary care physician once she is completed the course of antibiotics to ensure that her infection has resolved. - ALLERGIES Allergies/Adverse Reactions: Allergies Allergy/AdvReac Type Severity Reaction Status Date / Time No Known Drug Allergies Allergy Verified 12/09/17 18:46 - MEDICATIONS Home Medications: Ambulatory Orders Medication Instructions Recorded Confirmed Vit Calc,Iron,Folic 1 tab PO DAILY 02/05/18 02/05/18 [ Vitamins] Dicloxacillin Sodium 500 mg PO QID #40 capsule 02/06/18 - PHYSICAL EXAM AT DISCHARGE General Appearance: positive: No acute distress, Alert Eyes Bilateral: positive: Normal inspection, PERRL, EOMI, No lid inflammation, Conjunctivae nml, No scleral icterus ENT: positive: ENT inspection nml, Pharynx nml, No signs of dehydration. negative: Purulent nasal drainage, Pharyngeal erythema, Oral lesions Neck: positive: Nml inspection, Thyroid nml, No JVD, Trachea midline. negative : Lymphadenopathy (R), Lymphadenopathy (L), Carotid bruit, Tracheal deviation Respiratory: positive: Chest non-tender, No respiratory distress, Breath sounds nml. negative: Wheezes, Rales, Rhonchi Cardiovascular: positive: Regular rate & rhythm, No murmur, No gallop Peripheral Pulses: positive: 2+ Abdomen: positive: Non-tender, No organomegaly, Nml bowel sounds, No distention. negative: Guarding, Rebound, Hepatomegaly Back: positive: Nml inspection. negative: CVA tenderness (R), CVA tenderness (L ) Skin: positive: Other (Right breast swelling and erythema is mild and improved since yesterday) Extremities: positive: Non-tender, Full ROM, Nml appearance, No pedal edema Neurologic/Psychiatric: positive: Oriented x3, CN's nml (2-12), Motor nml, Sensation nml, Mood/affect nml - LABS Result Diagrams: 02/06/18 07:49 02/05/18 05:30 Other Lab Results: Laboratory Results WBC 12.3 x10^3/uL (4.8-10.8) H 02/06/18 07:49 RBC 3.63 10^6/uL (4.20-5.40) L 02/06/18 07:49 Hgb 11.6 g/dL (12.0-16.0) L 02/06/18 07:49 Hct 34.3 % (37.0-47.0) L 02/06/18 07:49 MCV 94.4 fL (81.0-99.0) 02/06/18 07:49 MCH 31.8 pg (27.0-31.0) H 02/06/18 07:49 MCHC 33.7 g/dL (32.0-36.0) 02/06/18 07:49 RDW 12.8 % (12.0-15.0) 02/06/18 07:49 Plt Count 205 10^3/uL (130-450) 02/06/18 07:49 MPV 8.1 fL (7.9-10.8) 02/06/18 07:49 Neut # (Auto) 9.2 10^3/uL (1.5-6.6) H 02/06/18 07:49 Lymph # (Auto) 2.0 10^3/uL (1.5-3.5) 02/06/18 07:49 [place] # (Auto) 0.9 10^3/uL (0.0-1.0) 02/06/18 07:49 Eos # (Auto) 0.1 10^3/uL (0.0-0.7) 02/06/18 07:49 Baso # (Auto) 0.0 10^3/uL (0.0-0.1) 02/06/18 07:49 Absolute Nucleated RBC 0.00 x10^3/uL 02/06/18 07:49 Nucleated RBC % 0.0 /100WBC 02/06/18 07:49 ESR 10 mm/Hr (0-20) 02/05/18 05:30 PT 13.2 secs (9.9-12.6) H 02/04/18 19:57 INR 1.2 (0.8-1.2) 02/04/18 19:57 APTT 27.9 secs (24.9-33.3) 02/04/18 19:57 Sodium 137 mmol/L (135-145) 02/05/18 05:30 Potassium 3.3 mmol/L (3.5-5.0) L 02/05/18 05:30 Chloride 111 mmol/L (101-111) 02/05/18 05:30 Carbon Dioxide 21 mmol/L (21-32) 02/05/18 05:30 Anion Gap 5.0 (6-13) L 02/05/18 05:30 BUN 9 mg/dL (6-20) 02/05/18 05:30 Creatinine 0.7 mg/dL (0.4-1.0) 02/05/18 05:30 Estimated GFR (MDRD) 102 (>89) 02/05/18 05:30 Glucose 134 mg/dL (70-100) H 02/05/18 05:30 Lactic Acid 1.6 mmol/L (0.5-2.2) 02/05/18 05:30 Calcium 7.8 mg/dL (8.5-10.3) L 02/05/18 05:30 Phosphorus 1.6 mg/dL (2.5-4.6) L 02/05/18 05:30 Magnesium 1.8 mg/dL (1.7-2.8) 02/05/18 05:30 Total Bilirubin 0.6 mg/dL (0.2-1.0) 02/04/18 22:41 AST 24 IU/L (10-42) 02/04/18 22:41 ALT 20 IU/L (10-60) 02/04/18 22:41 Alkaline Phosphatase 50 IU/L (42-121) 02/04/18 22:41 Total Protein 5.7 g/dL (6.7-8.2) L 02/04/18 22:41 Albumin 3.0 g/dL (3.2-5.5) L 02/05/18 05:30 Globulin 2.6 g/dL (2.1-4.2) 02/04/18 22:41 Albumin/Globulin Ratio 1.2 (1.0-2.2) 02/04/18 22:41 Lipase 27 U/L (22-51) 02/04/18 16:47 Urine Color YELLOW 02/04/18 17:09 Urine Clarity CLEAR (CLEAR) 02/04/18 17:09 Urine pH 7.0 PH (5.0-7.5) 02/04/18 17:09 Ur Specific [place] 1.015 (1.002-1.030) 02/04/18 17:09 Urine Protein NEGATIVE mg/dL (NEGATIVE) 02/04/18 17:09 Urine Glucose (UA) NEGATIVE mg/dL (NEGATIVE) 02/04/18 17:09 Urine Ketones NEGATIVE mg/dL (NEGATIVE) 02/04/18 17:09 Urine Occult Blood NEGATIVE (NEGATIVE) 02/04/18 17:09 Urine Nitrite NEGATIVE (NEGATIVE) 02/04/18 17:09 Urine Bilirubin NEGATIVE (NEGATIVE) 02/04/18 17:09 Urine Urobilinogen 0.2 (NORMAL) E.U./dL (NORMAL) 02/04/18 17:09 Ur Leukocyte Esterase NEGATIVE (NEGATIVE) 02/04/18 17:09 Ur Microscopic Review NOT INDICATED 02/04/18 17:09 Urine Culture Comments NOT INDICATED 02/04/18 17:09 Last Dose Date UNK 02/06/18 09:32 Last Dose Time UNK 02/06/18 09:32 Vancomycin Trough 9.9 ug/mL (10.0-20.0) L 02/06/18 09:32 Influenza A (Rapid) Negative (Negative) 02/04/18 17:09 Influenza B (Rapid) Negative (Negative) 02/04/18 17:09 - DIAGNOSTIC IMAGING Diagnostic Imaging Results: Final report reviewed Diagnostic Imaging Results Comments: Chest x-ray Impression: Normal single view chest - FOLLOW UP Follow Up: Patient admitted for sepsis secondary to mastitis and treated with IV antibiotics. She improved and now being discharged home with oral antibiotics for the next 10 days. She is prescribed dicloxacillin 500 mg 4 times daily and instructed to continue pumping, with warm compresses and told to pump and dump prior to feeding her baby. Patient will follow up with her primary care physician once she is complete a course of antibiotics. - TIME SPENT Time Spent in Discharge (Minutes): 45
== END 2018-02-06 11:35 | disposition home or self-care (01) | DRG 872 ==
LOC: ED 16:13 → ICU 19:33
PROVIDERS: ADMIT Internal Medicine; ATTEND Internal Medicine
DX: A41.9 Sepsis, unspecified organism (principal); N61.0 Mastitis without abscess
CPT/HCPCS: 36415; 71045; 80048; 80053; 80202; 81001; 81003; 82040; 83605; 83690; 83735; 84100; 85025; 85610; 85651; 85730; 87040; 87070; 87086; 87150; 87205; 87275; 87276; 96365; 96375; 99284; 99285

== ENCOUNTER 2019-08-04 08:00 | Outpatient (CLI) | payer OTHER ==
[2019-08-04 18:34] LABS: HGB - HEMOGLOBIN 10.4 g/dL (12.0-16.0); MEAN CORPUSCULAR HEMOGLOBIN 32.7 pg (27.0-31.0); MEAN CORPUSCULAR HGB CONC 33.2 g/dL (32.0-36.0); MEAN CORPUSCULAR VOLUME 98.4 fL (81.0-99.0); MEAN PLATELET VOLUME 10.2 fL (7.9-10.8); RED BLOOD COUNT 3.18 10^6/uL (4.20-5.40); RED CELL DISTRIBUTION WIDTH 12.6 % (12.0-15.0); WHITE BLOOD COUNT 10.9 x10^3/uL (4.8-10.8)
== END 2019-08-04 23:59 | disposition home or self-care (01) ==
LOC: LAB.N 08:00
PROVIDERS: ATTEND Obstetrics & Gynecology
DX: Z34.90 Encounter for supervision of normal pregnancy, unspecified, unspecified trimester (principal)
CPT/HCPCS: 36415; 82950; 85027; 86850

== ENCOUNTER 2019-09-07 17:41 | Outpatient (CLI) | payer OTHER ==
[2019-09-07 18:13] VITALS: BP 109/80
[2019-09-07 18:32] LABS: BILIRUBIN,URINE NEGATIVE (NEGATIVE); GLUCOSE, URINE (UA) 100 mg/dL (NEGATIVE); KETONES,URINE (UA) NEGATIVE (NEGATIVE); LEUKOCYTE ESTERASE, URINE NEGATIVE (NEGATIVE); NITRITE,URINE NEGATIVE (NEGATIVE); OCCULT BLOOD,URINE NEGATIVE (NEGATIVE); PH,URINE 5.5 PH (5.0-7.5); PROTEIN,URINE NEGATIVE (NEGATIVE); UROBILINOGEN,URINE 0.2 (NORMAL) E.U./dL (NORMAL)
[2019-09-07 18:38] LABS: CLARITY,URINE CLEAR (CLEAR)
--- NOTE | 2019-09-07 18:38 | PROCEDURE REPORT ---
- HPI Diagnosis/Indication for NST: Other (cramping) Current EDU 10/15/19 Gestation 34 Weeks and 4 Days 3 Para 2 Vital Signs Temperature 97.7 F 09/07/19 18:05 Heart Rate 133 H 09/07/19 18:05 Respiratory Rate 20 09/07/19 18:05 Blood Pressure 109/80 09/07/19 18:05 O2 Saturation 99 09/07/19 18:05 Temperature 97.7 F 09/07/19 18:05 Heart Rate 133 H 09/07/19 18:05 Respiratory Rate 20 09/07/19 18:05 Blood Pressure 109/80 09/07/19 18:05 O2 Saturation 99 09/07/19 18:05 - Results and Plan Findings/Impression: Pt presents with 5/10 cramping sensation today, came on gradually, not sure if it is significant, feels like her period is warming up, has not had this sensation with this or previous pregnancies. No VB, no LOF. Good FM. No discrete UCs. No abnormal vaginal discharge, itching, or odor. No dysuria or hematuria. No fevers. Some intermittent diarrhea over the past few weeks. No nausea. No URI symptoms. Feeling well overall. Normal amount of activity today taking kids to the park. No abdominal trauma. Normal amount of hydration about 90oz so far. Some scotoma and a mild headache--this is common for her throughout the and feels like one of her normal headaches. No history of HTN or preeclampsia. FOB is the same. O: AVSS Alert, smiling, NAD Abd soft Normal external genitalia, vagina, and cervix. Physiologic discharge. pH normal. SVE closed/40/-2/med/post US cervical length 2.5cm, images would not print NST category 1 [place] 1 contraction in 30min A/P: P2 at 34w with abdominal cramping, no evidence of labor. SVE closed. FFN, vaginitis panel, and UA are pending. FFN and UA are normal. Pt without further contractions. Discussed that she is OK to go home, please f/u PRN any significant change in status. PTL precautions reviewed. Has a clinic appt in 1.5-2w, OK to wait to be seen until then.
[2019-09-07 18:47] LABS: BACTERIA,URINE None Seen /HPF (None Seen); RBC,URINE None Seen /HPF (0-5); SQUAMOUS EPITHELIAL CELL,UR MOD Squamous (<= Few)
[2019-09-07 20:28] LABS: CANDIDA GROUP DNA NEGATIVE (NEGATIVE); CANDIDA KRUSEI DNA NEGATIVE (NEGATIVE); TRICHOMONAS VAGINALIS DNA NEGATIVE (NEGATIVE)
== END 2019-09-07 19:20 | disposition home or self-care (01) ==
LOC: WFO 17:41 → FBP 17:44 → WFO 19:20
PROVIDERS: ATTEND Obstetrics & Gynecology
DX: O99.89 Other specified diseases and conditions complicating pregnancy, childbirth and the puerperium (principal); R10.9 Unspecified abdominal pain; H53.459 Other localized visual field defect, unspecified eye; R51 Headache; Z3A.34 34 weeks gestation of pregnancy
CPT/HCPCS: 81001; 82731; 87086; 87661; 87801; 99214

== ENCOUNTER 2019-09-15 19:28 | Outpatient (CLI) | payer OTHER ==
[2019-09-15 19:43] VITALS: BP 122/81
[2019-09-15 20:17] LABS: MUDS CUTOFF CONCENTRATIONS CUTOFF CONC BELOW:
[2019-09-15 20:21] LABS: BILIRUBIN,URINE NEGATIVE (NEGATIVE); GLUCOSE, URINE (UA) 500 mg/dL (NEGATIVE); KETONES,URINE (UA) TRACE mg/dL (NEGATIVE); LEUKOCYTE ESTERASE, URINE NEGATIVE (NEGATIVE); NITRITE,URINE NEGATIVE (NEGATIVE); OCCULT BLOOD,URINE NEGATIVE (NEGATIVE); PROTEIN,URINE NEGATIVE (NEGATIVE); UROBILINOGEN,URINE 0.2 (NORMAL) E.U./dL (NORMAL)
[2019-09-15 20:30] LABS: AMPHETAMINE SCREEN,URINE NEGATIVE (NEGATIVE); BENZODIAZEPINES SCREEN, URINE NEGATIVE (NEGATIVE); COCAINE SCREEN URINE NEGATIVE (NEGATIVE); METHADONE SCREEN, URINE NEGATIVE (NEGATIVE); METHAMPHETAMINES SCREEN, URINE NEGATIVE (NEGATIVE); OPIATE SCREEN, URINE NEGATIVE (NEGATIVE); OXYCODONE SCREEN, URINE NEGATIVE (NEGATIVE); PROPOXYPHENE SCREEN, URINE NEGATIVE (NEGATIVE); TRICYCLIC ANTIDEPRESSANT,URINE NEGATIVE (NEGATIVE)
[2019-09-15 20:38] LABS: BACTERIA,URINE None Seen /HPF (None Seen); CLARITY,URINE CLEAR (CLEAR); RBC,URINE None Seen /HPF (0-5); SQUAMOUS EPITHELIAL CELL,UR FEW Squamous (<= Few)
[2019-09-15] MEDS ORDERED: LACTATED RINGERS 500 ML IV ONE (20:54)
[2019-09-15] MEDS ORDERED: LACTATED RINGERS 1,000 ML IV ONE (21:00)
[2019-09-15 21:27] LABS: BASOPHILS % (AUTO) 0.3 %; EOSINOPHILS # (AUTO) 0.1 10^3/uL (0.0-0.7); EOSINOPHILS % (AUTO) 0.6 %; HGB - HEMOGLOBIN 10.5 g/dL (12.0-16.0); LYMPHOCYTES # (AUTO) 2.4 10^3/uL (1.5-3.5); LYMPHOCYTES % (AUTO) 20.5 %; MEAN CORPUSCULAR HEMOGLOBIN 31.6 pg (27.0-31.0); MEAN CORPUSCULAR HGB CONC 33.3 g/dL (32.0-36.0); MEAN CORPUSCULAR VOLUME 94.9 fL (81.0-99.0); MEAN PLATELET VOLUME 10.1 fL (7.9-10.8); MONOCYTES # (AUTO) 1.1 10^3/uL (0.0-1.0); MONOCYTES % (AUTO) 9.4 %; NEUTROPHILS # (AUTO) 8.1 10^3/uL (1.5-6.6); NEUTROPHILS % (AUTO) 68.3 %; PLT - PLATELET COUNT 284 10^3/uL (130-450); RED BLOOD COUNT 3.32 10^6/uL (4.20-5.40); RED CELL DISTRIBUTION WIDTH 13.3 % (12.0-15.0); WHITE BLOOD COUNT 11.9 x10^3/uL (4.8-10.8)
--- NOTE | 2019-09-15 21:56 | PROVIDER PROGRESS NOTE ---
- HPI Chief Complaint: Other (Patient is a 24 yo at 35+5 wga here with cramping. Had loose stools and episode of emesis. Now reports abdominal cramping. No LOF or VB. No recent trauma. Seen in triage on 09/07/2019 with similar presentation. Prior deliveries at 38 and 39 wga. Followed by [facility]. FFN neg on 09/07/2019) Current : Current EDU 10/15/19 Gestation 35 Weeks and 5 Days 3 Para 2 Vital Signs Temperature 97.3 F L 09/15/19 19:42 Heart Rate 118 H 09/15/19 19:42 Respiratory Rate 18 09/15/19 19:42 Blood Pressure 122/81 H 09/15/19 19:42 O2 Saturation 100 09/15/19 19:42 Temperature 98.4 F 09/15/19 20:13 Heart Rate 118 H 09/15/19 19:42 Respiratory Rate 18 09/15/19 19:42 Blood Pressure 122/81 H 09/15/19 19:42 O2 Saturation 100 09/15/19 19:42 - Exam GEN: moderate distress at admit, resolved with rest and fluids CV: tachycardiac at admit, RR after IV fluids RESP: nl effort ABD: gravid, S&NT SVE FT/50/-2 per RN exam EFM 150 mod kajal 15x15 accels no decels TOCO: Q3-4 min at admit, now irritable FFN neg UA with 500 glucose POC glucose 78 MUDS neg - Procedures OB Procedure Performed: NST Diagnosis/Indication for NST: labor Service Date of procedure: 09/15/19 Procedure Details: Cat I tracing Findings: Resolution of tachycardia and uterine irritability with LR bolus 500 cc VS stable FFN neg Stable cervical exam - Plan Plan: 24 yo at 35+5 wga with maternal tachycardia and uterine irritability in the setting of diarrhea/emesis GI symptoms resolved LR bolus given; maternal tachycardia resolved and uterine contractions diminished FFN neg and stable SVE Cat I tracing GBS collected Discharge to home with warning signs reviewed
[2019-09-16 20:56] LABS: TRICHOMONAS VAGINALIS DNA NEGATIVE (NEGATIVE)
== END 2019-09-15 22:15 | disposition home or self-care (01) ==
LOC: WFO 19:28 → FBP 19:29 → WFO 22:15
PROVIDERS: ATTEND Obstetrics & Gynecology
DX: O99.89 Other specified diseases and conditions complicating pregnancy, childbirth and the puerperium (principal); R00.0 Tachycardia, unspecified; R19.7 Diarrhea, unspecified; O21.2 Late vomiting of pregnancy; Z3A.35 35 weeks gestation of pregnancy
CPT/HCPCS: 81001; 82731; 85025; 87491; 87591; 87661; 87797; 99215; J7120; 80306; 87086; 99213

== ENCOUNTER 2019-09-22 18:09 | Outpatient (CLI) | payer OTHER ==
[2019-09-22] MEDS ORDERED: ONDANSETRON ODT 4 MG TABLET TL PRN (18:31)
[2019-09-22 18:38] VITALS: BP 118/77
--- NOTE | 2019-09-27 23:21 | PROVIDER PROGRESS NOTE ---
- HPI Current : Current EDU 10/15/19 Gestation 36 Weeks and 5 Days 3 Para 2 Vital Signs Temperature 97.9 F 09/22/19 18:32 Heart Rate 108 H 09/22/19 18:32 Respiratory Rate 20 09/22/19 18:32 Blood Pressure 118/77 09/22/19 18:32 O2 Saturation 100 09/22/19 18:32 Temperature 97.9 F 09/22/19 18:32 Heart Rate 108 H 09/22/19 18:32 Respiratory Rate 20 09/22/19 18:32 Blood Pressure 118/77 09/22/19 18:32 O2 Saturation 100 09/22/19 18:32 - Exam SVE 0/20/-2 per RN exam GEN: NAD CV: mildly tachy RESP: nl effort ABD; gravid, S&NT/ND EXT: WWP PSY: appropriate affect NEURO: A&O EFM 145 mod kajal 15x15 accels, no decels TOCO: irritable - Procedures OB Procedure Performed: NST Service Date of procedure: 09/22/19 Procedure Details: Cat I tracing Findings: 24 yo at 36w5d ega with abdominal cramping - Plan Plan: Likely prodromal labor Contractions mild and disorganized; no significant cervical change Given zofran for nausea Counseled that with continued labor, we would proceed with delivery at this gestational age. No intervention to stall labor would be offered Cat I tracing No change in SVE Discharged to home with warning signs and rx for Zofran DX: False or threatened labor DOS: 09/22/2019
== END 2019-09-22 19:10 | disposition home or self-care (01) ==
LOC: WFO 18:09 → FBP 18:11 → WFO 19:10
PROVIDERS: ATTEND Obstetrics & Gynecology
DX: O47.03 False labor before 37 completed weeks of gestation, third trimester (principal); Z3A.36 36 weeks gestation of pregnancy; R11.0 Nausea
CPT/HCPCS: 99213; Q0162

== ENCOUNTER 2019-10-02 22:48 | Outpatient (CLI) | payer OTHER ==
[2019-10-02 22:58] VITALS: BP 110/78
--- NOTE | 2019-10-13 12:22 | PROVIDER PROGRESS NOTE ---
- HPI Chief Complaint: Labor Check Current : Current EDU 10/15/19 Gestation 38 Weeks and 1 Days 3 Para 2 Vital Signs Temperature 36.9 C 10/02/19 22:51 Heart Rate 95 10/02/19 22:51 Respiratory Rate 20 10/02/19 22:51 Blood Pressure 110/78 10/02/19 22:51 O2 Saturation 99 10/02/19 22:51 Temperature 36.9 C 10/02/19 22:51 Heart Rate 95 10/02/19 22:51 Respiratory Rate 20 10/02/19 22:51 Blood Pressure 110/78 10/02/19 22:51 O2 Saturation 99 10/02/19 22:51 - Exam 3/70%/-2 - Procedures OB Procedure Performed: NST NST Procedure: normal Service Date of procedure: 10/02/19 Procedure Details: Rule out labor - Plan Plan: return as needed
== END 2019-10-03 01:15 | disposition home or self-care (01) ==
LOC: WFO 22:48 → FBP 22:49 → WFO 10-03 01:15
PROVIDERS: ATTEND Obstetrics & Gynecology
DX: Z34.83 Encounter for supervision of other normal pregnancy, third trimester (principal); Z3A.38 38 weeks gestation of pregnancy
CPT/HCPCS: 99213

== ENCOUNTER 2019-10-03 16:29 | Outpatient (CLI) | payer OTHER ==
[2019-10-03 16:49] VITALS: BP 108/76
[2019-10-03 18:00] LABS: RUPTURE OF MEMBRANES PLUS NEGATIVE (NEGATIVE)
--- NOTE | 2019-10-13 12:42 | PROVIDER PROGRESS NOTE ---
- HPI Current : Current EDU 10/15/19 Gestation 38 Weeks and 2 Days 3 Para 2 Vital Signs Temperature 38.9 C H 10/03/19 16:44 Heart Rate 116 H 10/03/19 16:44 Respiratory Rate 18 10/03/19 16:44 Blood Pressure 108/76 10/03/19 16:44 Temperature 36.8 C 10/03/19 16:49 Heart Rate 116 H 10/03/19 16:49 Respiratory Rate 18 10/03/19 16:49 Blood Pressure 108/76 10/03/19 16:49 O2 Saturation - Exam per nursing /- lab negative - Procedures OB Procedure Performed: NST Diagnosis/Indication for NST: Other (Rule out labor) NST Procedure: reaactive Findings: not ruptured not in labor - Plan Plan: return when labor
== END 2019-10-03 18:10 | disposition home or self-care (01) ==
LOC: WFO 16:29 → FBP 16:31 → WFO 18:10
PROVIDERS: ATTEND Obstetrics & Gynecology
DX: Z34.83 Encounter for supervision of other normal pregnancy, third trimester (principal); Z3A.38 38 weeks gestation of pregnancy
CPT/HCPCS: 84112; 99213

== ENCOUNTER 2019-10-04 17:05 | Outpatient (CLI) | payer OTHER ==
[2019-10-04 17:17] VITALS: BP 117/82
--- NOTE | 2019-10-22 10:08 | PROCEDURE REPORT ---
- HPI Diagnosis/Indication for NST: Other (RO labor) Current EDU 10/15/19 Gestation 38 Weeks and 3 Days 3 Para 2 Vital Signs Temperature 36.5 C 10/04/19 17:14 Heart Rate 114 H 10/04/19 17:14 Respiratory Rate 18 10/04/19 17:14 Blood Pressure 117/82 H 10/04/19 17:14 O2 Saturation 100 10/04/19 17:14 Temperature 36.5 C 10/04/19 17:14 Heart Rate 114 H 10/04/19 17:14 Respiratory Rate 18 10/04/19 17:14 Blood Pressure 117/82 H 10/04/19 17:14 O2 Saturation 100 10/04/19 17:14 - NST Procedure NST Procedure Start Date 10/04/19 Start Time 17:10 Stop Time 17:50 Vibroacoustic Stimulation Used No Patient States Movement Yes - Results and Plan Findings/Impression: reactive NST Plan: send home
--- NOTE | 2019-11-07 10:43 | PROCEDURE REPORT ---
- HPI Current EDU 10/15/19 Gestation 38 Weeks and 3 Days 3 Para 2 Vital Signs Temperature 36.5 C 10/04/19 17:14 Heart Rate 114 H 10/04/19 17:14 Respiratory Rate 18 10/04/19 17:14 Blood Pressure 117/82 H 10/04/19 17:14 O2 Saturation 100 10/04/19 17:14 Temperature 36.5 C 10/04/19 17:14 Heart Rate 114 H 10/04/19 17:14 Respiratory Rate 18 10/04/19 17:14 Blood Pressure 117/82 H 10/04/19 17:14 O2 Saturation 100 10/04/19 17:14 - NST Procedure NST Procedure Start Date 10/04/19 Start Time 17:10 Stop Time 17:50 Vibroacoustic Stimulation Used No Patient States Movement Yes - Results and Plan Findings/Impression: 38.3 weeks Contractions not in labor
== END 2019-10-04 18:00 | disposition home or self-care (01) ==
LOC: WFO 17:05 → FBP 17:07 → WFO 18:00
PROVIDERS: ATTEND Obstetrics & Gynecology
DX: Z34.83 Encounter for supervision of other normal pregnancy, third trimester (principal); Z3A.38 38 weeks gestation of pregnancy
CPT/HCPCS: 59025; 99213

== ENCOUNTER 2019-10-05 03:43 | Inpatient (IN) | payer OTHER ==
[2019-10-05] MEDS ORDERED: fentaNYL 100 MCG/2 ML VIAL IVP PRN (04:08)
[2019-10-05] MEDS ORDERED: OXYTOCIN/SODIUM CHLORIDE 500 ML IV PRN (04:08)
[2019-10-05] MEDS: SODIUM CHLORIDE FLUSH 0.9% 10 ML SYRINGE IVP PRN ×2 (04:30→07:54)
[2019-10-05] MEDS: LACTATED RINGERS 1,000 ML IV SCH ×3 (04:30→12:40)
[2019-10-05 05:03] LABS: BASOPHILS # (AUTO) 0.1 10^3/uL (0.0-0.1); BASOPHILS % (AUTO) 0.4 %; EOSINOPHILS # (AUTO) 0.1 10^3/uL (0.0-0.7); EOSINOPHILS % (AUTO) 0.4 %; HGB - HEMOGLOBIN 10.7 g/dL (12.0-16.0); LYMPHOCYTES # (AUTO) 2.3 10^3/uL (1.5-3.5); LYMPHOCYTES % (AUTO) 14.2 %; MEAN CORPUSCULAR HEMOGLOBIN 30.1 pg (27.0-31.0); MEAN CORPUSCULAR HGB CONC 32.3 g/dL (32.0-36.0); MEAN CORPUSCULAR VOLUME 93.2 fL (81.0-99.0); MEAN PLATELET VOLUME 10.4 fL (7.9-10.8); MONOCYTES # (AUTO) 1.4 10^3/uL (0.0-1.0); MONOCYTES % (AUTO) 8.7 %; NEUTROPHILS # (AUTO) 12.4 10^3/uL (1.5-6.6); NEUTROPHILS % (AUTO) 75.6 %; PLT - PLATELET COUNT 259 10^3/uL (130-450); RED BLOOD COUNT 3.55 10^6/uL (4.20-5.40); RED CELL DISTRIBUTION WIDTH 13.2 % (12.0-15.0); WHITE BLOOD COUNT 16.4 x10^3/uL (4.8-10.8)
[2019-10-05] MEDS ORDERED: ROPIVACAINE 0.2% 200 MG/100 ML BAG EP ONE (05:58)
[2019-10-05] MEDS ORDERED: LIDOCAINE-MPF 1% 30 ML VIAL ONE (06:25)
[2019-10-05] MEDS ORDERED: ROPIVACAINE 0.2% 200 MG/100 ML BAG EP PRN (07:02)
[2019-10-05] MEDS ORDERED: NALBUPHINE 10 MG/ML AMP IVP PRN (07:03)
[2019-10-05] MEDS ORDERED: ONDANSETRON 4 MG/2 ML VIAL IVP PRN (07:03)
[2019-10-05] MEDS ORDERED: diphenhydrAMINE INJ 50 MG/ML VIAL IVP PRN (07:03)
--- NOTE | 2019-10-05 07:07 | ANESTHESIA ---
Pre-Anesthesia VS, & Labs - Diagnosis Active labor - Procedure Continuous labor epidural Vital Signs: Temp Pulse Resp BP Pulse Ox 36.5 C 110 H 16 133/82 H 10/05/19 03:54 10/05/19 03:54 10/05/19 03:54 10/05/19 03:54 Height 5 ft 8 in Weight (kg) 74.843 kg Body Mass Index 20.7 - NPO Other (ice chips) - Is Patient ?: Yes - Lab Results Current Lab Results: Laboratory Tests 10/05/19 04:30: WBC 16.4 H, RBC 3.55 L, Hgb 10.7 L, Hct 33.1 L, MCV 93.2, MCH 30.1, MCHC 32.3, RDW 13.2, Plt Count 259, MPV 10.4, Neut # (Auto) 12.4 H, Lymph # (Auto) 2.3, [place] # (Auto) 1.4 H, Eos # (Auto) 0.1, Baso # (Auto) 0.1, Absolute Nucleated RBC 0.00, Nucleated RBC % 0.0 Fish Bones: 10/05/19 04:30 Home Medications and Allergies Active Medications Diphenhydramine HCl (Benadryl Inj) 12.5 - 25 mg IVP Q6HR PRN PRN Reason: ITCHING Fentanyl (Fentanyl) 50 mcg IVP Q1H PRN PRN Reason: PAIN Lactated Ringer's (Lr) 1,000 mls @ 150 mls/hr IV .Q6H40M DERIK Last Admin: 10/05/19 04:30 Dose: 150 mls/hr Oxytocin/Sodium Chloride (Pitocin/Sodium Chloride) 500 mls @ 999 mls/hr IV PRN PRN; Protocol PRN Reason: POST- HEMORR PREVENTION Ropivacaine (Naropin 0.2%) 200 mg in 100 mls @ 0 mls/hr EP PRN PRN; Protocol PRN Reason: Analgesia Nalbuphine HCl (Nubain) 2.5 - 5 mg IVP Q4H PRN PRN Reason: Severe Itching Ondansetron HCl (Zofran Inj) 4 mg IVP Q4H PRN PRN Reason: Nausea / Vomiting Ondansetron HCl (Zofran Inj) 4 mg IVP Q6HR PRN PRN Reason: Nausea / Vomiting Sodium Chloride (Normal Saline Flush 0.9%) 10 ml IVP PRN PRN PRN Reason: NEEDED PER PROVIDER ORDERS Last Admin: 10/05/19 04:30 Dose: 10 ml Vit Calc,Iron,Folic [ Vitamins] 1 tab PO DAILY 02/05/18 Allergies/Adverse Reactions: Allergies Allergy/AdvReac Type Severity Reaction Status Date / Time No Known Drug Allergies Allergy Verified 12/09/17 18:46 Anes History & Medical History - Anesthetic History Anesthesia Complications: reports: No previous complications Family history of Anesthesia Complications: Denies Family history of Malignant Hyperthermia: Denies - Medical History Cardiovascular: reports: None Pulmonary: reports: None Gastrointestinal: reports: None Urinary: reports: None Neuro: reports: None Musculoskeletal: reports: None Endocrine/Autoimmune: reports: None Blood Disorders: reports: None Skin: reports: None Smoking Status: Never smoker Psychosocial: reports: No issues indicated Plan Anesthesia Type: Epidural Consent for Procedure(s) Verified and Reviewed: Yes Code Status: Attempt Resuscitation ASA classification: 2-Mild systemic disease Is this case an emergency?: Yes
--- NOTE | 2019-10-05 07:12 | CONSULTATION NOTE ---
Consultation Report: This epidural required 4 different puncture sites to finally reach the epidural space, patient's spinous processes are about 2 cm to the left of center and there was difficulty in positioning. The final attempt required a steep angle and significant pressure to reach the epidural space. Although I never obtained CDSF, there is a possibility this patient will have a PDPH. I counseled her for that. In addition I told her she may have a significant backache after the epidural is dc'd and that ice packs and Tylenol will help.
[2019-10-05] MEDS: ONDANSETRON 4 MG/2 ML VIAL IVP PRN ×2 (07:54→13:27)
--- NOTE | 2019-10-05 14:23 | DELIVERY NOTE ---
Delivery Note - Labor Labor: positive: Spontaneous, Augmented by ARM - Infant Delivery Method Delivery Method: positive: Spontaneous vaginal delivery - Presentation Presentation: positive: Vertex, LOP - left occiput posterior - Nuchal Cord Nuchal Cord: positive: None - Anesthetic Anesthetic Type: Anesthetic: positive: Lidocaine - 1% plain Volume: positive: 5cc, Other - Amniotic Fluid Description Amniotic Fluid Description: positive: Clear - Episiotomy Type Episiotomy Type: positive: None - Laceration Laceration: positive: 1st degree - Suture Suture Type: positive: Vicryl Suture Size: positive: 3-0 - Delivery Outcome Delivery Outcome: positive: Livebirth - : positive: Placed in direct skin contact with mother, Bulb syringe, Stimulated, [place] used [place] sex: positive: Male - Cord Cord: positive: 3 vessels - Placenta Placenta: positive: Intact, Other (Accessory Loab) - Estimated Blood Loss Estimated Blood Loss (in cc): 200 - Post Delivery Events Post Delivery Events: positive: No post delivery events - Delivery Comments (Free Text/Narrative) Delivery Comments (Free Text/Narrative): She had been in and out of labor and delivery multiple times throughout the weekend. This Morning she came in and her cervix had changed from 3 to 4 cm. For this reason she was admitted. She had labor contractions were brought her roughly 5 to 6 cm. She was artificially ruptured at 0 952 and clear amniotic fluid was encountered. She had contractions she had an epidural placed for labor analgesia. Position changes were utilized. At 1325 she reached complete. Delivery was set up for. She had a 13-minute second stage she pushed through 1 contraction was halted and then deliver the infant at the beginning of the next contraction. Head was easily delivered rotated and his shoulders were delivered without difficulty. The was placed on the maternal abdomen. The Apgars were noted to be 8 and 9 on a male . The placenta followed soon thereafter was inspected and noted to have an accessory lobe. She was suffered a first-degree laceration of the perineum which was repaired with 3-0 Vicryl following local anesthesia with 1% Xylocaine patient. Tolerated delivery well.
[2019-10-05] MEDS ORDERED: oxyCODONE 5 MG TABLET PO PRN (15:14)
[2019-10-05] MEDS ORDERED: HYDROCORTISONE 1% CREAM 28 GM TUBE PR PRN (15:14)
[2019-10-05] MEDS ORDERED: WITCH HAZEL/GLYCERIN 1 PAD TOP PRN (15:14)
[2019-10-05] MEDS ORDERED: LACTATED RINGERS 1,000 ML IV SCH (16:00)
[2019-10-05] MEDS: IBUPROFEN 600 MG TABLET PO SCH ×2 (16:00→22:13)
[2019-10-05] MEDS: ACETAMINOPHEN 500 MG TABLET PO SCH ×2 (16:00→23:43)
[2019-10-05] MEDS ORDERED: LIDOCAINE-MPF 1% 2 ML AMP SUBQ ONE (16:36)
[2019-10-05] MEDS ORDERED: LIDOCAINE-MPF 1% 30 ML VIAL ID PRN (16:45)
--- NOTE | 2019-10-05 17:19 | PROVIDER PROGRESS NOTE ---
Subjective - Prog Note Date Prog Note Date: 10/05/19 Prog Note Time: 17:16 - Subjective Pt reports feeling: Worse (noted ot be warm) Objective - Vital Signs/Intake & Output Reviewed Vital Signs: Yes Vital Signs: Vital Signs x48h Temp Pulse Resp BP Pulse Ox 10/05/19 16:59 38.1 C H 10/05/19 16:00 37.7 C H 124 H 16 127/59 L 99 10/05/19 15:45 120 H 125/67 10/05/19 15:15 117 H 16 120/67 100 10/05/19 15:00 37.4 C 121 H 15 123/72 100 10/05/19 14:45 116 H 16 110/66 10/05/19 14:30 122 H 125/66 10/05/19 14:00 128 H 16 143/121 H 100 Intake & Output: Intake & Output 10/02/19 10/03/19 10/04/19 10/06/19 23:59 23:59 23:59 00:59 Intake Total 1225 Output Total 1325 Balance -100 - Objective General Appearance: positive: No acute distress Abdomen: positive: Mass (at U. mild tenderness) - Lab Results Fish Bones: 10/05/19 04:30 Other Labs: Lab Results x24hrs 10/05/19 Range/Units 04:30 WBC 16.4 H (4.8-10.8) x10^3/uL RBC 3.55 L (4.20-5.40) 10^6/uL Hgb 10.7 L (12.0-16.0) g/dL Hct 33.1 L (37.0-47.0) % MCV 93.2 (81.0-99.0) fL MCH 30.1 (27.0-31.0) pg MCHC 32.3 (32.0-36.0) g/dL RDW 13.2 (12.0-15.0) % Plt Count 259 (130-450) 10^3/uL MPV 10.4 (7.9-10.8) fL Neut # (Auto) 12.4 H (1.5-6.6) 10^3/uL Lymph # (Auto) 2.3 (1.5-3.5) 10^3/uL [place] # (Auto) 1.4 H (0.0-1.0) 10^3/uL Eos # (Auto) 0.1 (0.0-0.7) 10^3/uL Baso # (Auto) 0.1 (0.0-0.1) 10^3/uL Absolute Nucleated RBC 0.00 x10^3/uL Nucleated RBC % 0.0 /100WBC Assessment/Plan - Problem List (2) Endomyometritis Impression: temp with chills prolonged labor Unasyn 3gms q6 hours for 24 hours
[2019-10-05] MEDS: AMPICILLIN/SULBACTAM 3 GM in SODIUM CHLORIDE 0.9% MINIBAG 100 ML IV SCH ×2 (17:59→23:44)
[2019-10-05] MEDS ORDERED: SIMETHICONE CHEW 80 MG TABLET PO SCH (22:00)
[2019-10-06] MEDS: IBUPROFEN 600 MG TABLET PO SCH ×2 (03:45→12:06)
[2019-10-06] MEDS: AMPICILLIN/SULBACTAM 3 GM in SODIUM CHLORIDE 0.9% MINIBAG 100 ML IV SCH ×2 (05:45→12:01)
[2019-10-06] MEDS: ACETAMINOPHEN 500 MG TABLET PO SCH ×2 (07:43→16:15)
--- NOTE | 2019-10-06 08:36 | PROVIDER PROGRESS NOTE ---
Subjective - Prog Note Date Prog Note Date: 10/06/19 Prog Note Time: 08:33 - Subjective Pt reports feeling: Improved (Pt feels well. no tepms or chills. Breast feeding. Pain well controled 10/06.) Objective - Vital Signs/Intake & Output Reviewed Vital Signs: Yes Vital Signs: Vital Signs x48h Temp Pulse Resp BP 10/06/19 03:58 36.7 C 82 18 116/78 Intake & Output: Intake & Output 10/03/19 10/04/19 10/05/19 10/06/19 22:59 22:59 23:59 23:59 Intake Total 600 Output Total Balance 600 - Objective General Appearance: positive: No acute distress, Alert Respiratory: positive: Chest non-tender, No respiratory distress, Breath sounds nml Cardiovascular: positive: Regular rate & rhythm, No murmur, No gallop Abdomen: positive: Mass (U-2 nontender) Back: negative: CVA tenderness (R), CVA tenderness (L) Extremities: negative: Calf tenderness, Lisy's sign/cords - Lab Results Fish Bones: 10/05/19 04:30 Assessment/Plan - Problem List (1) (spontaneous vaginal delivery) Impression: Excellent progress. Send home today. Discharge medication Motrin 600 Colace home supply RTC one week reviewed breast feeding and contraception (2) Endomyometritis Impression: resolverd with 24 hours of unasyn.
--- NOTE | 2019-10-06 08:55 | Discharge Plan ---
Discharge Plan Problem Reviewed?: Yes Disposition: Home, Self Care Condition: Good Diet: Regular Activity Restrictions: pelvic rest 6 weeks Shower Restrictions: No Driving Restrictions: No Weight Bearing: Full Weight No Smoking: If you smoke, Please STOP! Call for help. Follow-up with: Gabrielle Hooper ARNP [Primary Care Provider] -
--- NOTE | 2019-10-06 09:21 | DISCHARGE SUMMARY ---
Physician: Serg Badillo MD DATE OF ADMISSION: 10/05/2019 DATE OF DISCHARGE: 10/06/2019 ADMITTING DIAGNOSES 1. A 24-year-old G3, P2, at 38.4 weeks. 2. Active labor. DISCHARGE DIAGNOSES 1. A 24-year-old G3, P2, at 38.4 weeks. 2. Spontaneous vaginal delivery. 3. endometritis. PROCEDURES 1. Artificial rupture of membranes. 2. Epidural. 3. Spontaneous vaginal delivery. LABORATORIES: CBC on admission showed a white count of 16.4, hemoglobin was 10.7, hematocrit was 33.1, platelets were 256. HOSPITAL COURSE: Patient had been in multiple times in labor and delivery over the weekend. She finally presented at 4 cm, at which time hospitalization was ordered. The cervix was roughly 5 to 6 cm. She was artificially ruptured that morning. She developed contractions which were strong and she had a labor epidural placed. She reached complete at 1325 and following a 13-minute second stage, she delivered with one contraction. She was noted to be occiput anterior. Her placenta which delivered spontaneously after was noted to have an accessory lobe. Her course was significant in that she had a temperature of 38.1 cm and a tender uterus. For this reason, she was placed on Unasyn 3 grams every 6 hours. Her temperature defervesced quite quickly. Her heart rate went from 124, down to 82. Her blood pressures have been stable throughout. She is being discharged to home today on Motrin 600 mg p.o. She has been instructed to follow up in the clinic in 1 week. We have reviewed contraception, , as well as mastitis and infection. TD: 10/06/2019 08:56 GEN
[2019-10-06 16:34] VITALS: BP 136/76
--- NOTE | 2019-10-06 17:19 | Labor Flowsheet ---
Labor Flowsheet Datetime Report Generated by CPN: 10/06/2019 17:19 Datetime: 10/06/2019 16:33 VITAL SIGNS NBP Sys/Olga/Mean (mmHg): 145 : 84 : 98 Pulse: 76 LaborFlag: Labor Datetime: 10/05/2019 19:34 SpO2 (%): 100 Datetime: 10/05/2019 13:38 UTERINE ACTIVITY Monitor Mode: External Frequency (min): 2 Quality: Strong Duration (sec): 50-70 Pattern: Normal: <= 5 Contractions in 10 Minutes Resting Tone (Palpate): Relaxed ASSESSMENT A Monitor Mode: Telemetry FHR Baseline Rate : 145 FHR Baseline Changes: No Baseline Change Variability: Moderate 6-25 bpm Accelerations: None Decelerations: Early Comments: interupted strip Oxygen Method: Room Air Datetime: 10/05/2019 13:30 Category: Category II Patient Care Comments: emeisis Datetime: 10/05/2019 13:25 VAGINAL EXAM Dilatation (cm): 10.0 Effacement (%): 100 Station: 1 Exam by: mary acevedo rn Vaginal Bleeding: Normal Show Cervix, Consistency: Soft Cervix, Position: Anterior Datetime: 10/05/2019 12:37 Respirations: 15 Temperature (C): 36.7 Patient Position/Activity: Right Lateral Datetime: 10/05/2019 11:56 COMMUNICATION Communication: Provider at Bedside Datetime: 10/05/2019 11:51 Communication Comments: DrYana Badillo made aware of recent cervical check; provider also aware low BP is due to BP cuff being above heart due to patient position Datetime: 10/05/2019 11:49 Anesthesia Level Check: T9 Datetime: 10/05/2019 10:34 Vaginal Exam Comments: patient feeling more pressure Datetime: 10/05/2019 09:52 Membrane Status: Ruptured Membranes Rupture Method: Artificial Amniotic Fluid Color: Clear Amniotic Fluid Amount: Small Amniotic Fluid Odor: Normal Datetime: 10/05/2019 09:24 Pain Coping: Talking Through Contractions Pain Assessment Comments: feeling pressure Datetime: 10/05/2019 08:42 Notification Reason: Labor Status Datetime: 10/05/2019 07:52 MEDICATIONS Antiemetics/Antacids: Zofran (mg) @ 4 PATIENT CARE IV/Blood Work: IV Infusing per Order; New IV Bag Hung Datetime: 10/05/2019 06:56 I/O Interventions: Melgoza Cath Inserted Datetime: 10/05/2019 06:42 Anesthesia Comments: laying back in bed, right tilt Datetime: 10/05/2019 06:33 ANESTHESIA Epidural Procedure: Test Dose Datetime: 10/05/2019 06:12 Medication Comments: LR bolus completed Datetime: 10/05/2019 06:07 PROCEDURE TIME OUT Procedure Verify: Correct Patient Identity; Correct Side and Site are Marked; Accurate Procedure Co nsent Form; Agreement on Procedure to be Done; Correct Patient Position; Addressed Need to Administer Antibiotics or Fluids for Irrigation; Safety Precautions Based on Patient History or Medication Use Datetime: 10/05/2019 05:57 Hygiene: Gown Changed Datetime: 10/05/2019 05:52 PAIN Pain Scale: 6 Pain Goal: 3
--- NOTE | 2019-10-14 08:37 | HISTORY & PHYSICAL EXAMINATION ---
DATE OF SERVICE: 10/05/2019 Physician: Serg Badillo MD IDENTIFICATION: A 24-year-old G3, P2, female whose EDC was 10/15/2019, making her 38.3 weeks. CHIEF COMPLAINT: Active labor. HISTORY OF PRESENT ILLNESS: Patient has been seen multiple times with contractions as well as suspected rupture of membranes this morning. Today she presents with a cervix, which has gone from 3 to 4 cm. For this reason, she is being admitted for delivery. She started her OB care with us at 29 weeks' EGA. Her labs show to be O positive, rubella immune, 50 gram Glucola was 77. Her STI check was negative. PAST MEDICAL HISTORY: Zero. SURGICAL HISTORY: Zero. ALLERGIES: NONE KNOWN. CURRENT MEDICATIONS: Those of vitamins. HABITS: The patient denies use of alcohol, tobacco, or street or addictive drugs. FAMILY HISTORY: Positive for diabetes in the father, as well as hypertension in both mother and father. PHYSICAL EXAMINATION GENERAL: Well-developed, well-nourished female complaining of intermittent contractions. HEENT: Pupils are equal, round. Extraocular muscles are intact. Thyroid is not palpably enlarged. HEART: Regular rate and rhythm without murmurs. LUNGS: Lung au are clear without rales or wheezes. ABDOMEN: Gravid. PELVIC: Her examination shows her to be 4 cm. IMPRESSION 1. A 24-year-old G3, P2 female at 38.3 weeks. 2. Active labor. PLAN: We will admit patient, allow to labor, and anticipate spontaneous vaginal delivery. At this time, patient is declining epidural. TD: 10/13/2019 13:06 MTDD
== END 2019-10-06 17:10 | disposition home or self-care (01) | DRG 806 ==
LOC: WFO 03:43 → FBP 03:46 → WFO 04:07 → FBP 04:08
PROVIDERS: ADMIT Obstetrics & Gynecology; ATTEND Obstetrics & Gynecology
PROC: 10E0XZZ Delivery of Products of Conception, External Approach (ICD-10-PCS; principal; 2019-10-05)
PROC: 0HQ9XZZ Repair Perineum Skin, External Approach (ICD-10-PCS; 2019-10-05)
PROC: 10907ZC Drainage of Amniotic Fluid, Therapeutic from Products of Conception, Via Natural or Artificial Opening (ICD-10-PCS; 2019-10-05)
DX: O64.0XX0 Obstructed labor due to incomplete rotation of fetal head, not applicable or unspecified (principal); O86.12 Endometritis following delivery; Z37.0 Single live birth; O63.0 Prolonged first stage (of labor); O43.193 Other malformation of placenta, third trimester; Z3A.38 38 weeks gestation of pregnancy
CPT/HCPCS: 85025; A9270; J7120; 99213

== ENCOUNTER 2022-11-03 01:33 | Emergency (ER) | payer OTHER ==
[2022-11-03 03:12] LABS: BASOPHILS # (AUTO) 0.1 10^3/uL (0.0-0.1); BASOPHILS % (AUTO) 0.6 %; EOSINOPHILS # (AUTO) 0.1 10^3/uL (0.0-0.7); EOSINOPHILS % (AUTO) 1.5 %; HCT - HEMATOCRIT 40.8 % (37.0-47.0); HGB - HEMOGLOBIN 14.3 g/dL (12.0-16.0); LYMPHOCYTES # (AUTO) 2.5 10^3/uL (1.5-3.5); LYMPHOCYTES % (AUTO) 31.6 %; MEAN CORPUSCULAR HEMOGLOBIN 32.3 pg (27.0-31.0); MEAN CORPUSCULAR VOLUME 92.1 fL (81.0-99.0); MEAN PLATELET VOLUME 10.1 fL (7.9-10.8); MONOCYTES # (AUTO) 0.7 10^3/uL (0.0-1.0); MONOCYTES % (AUTO) 8.6 %; NEUTROPHILS # (AUTO) 4.5 10^3/uL (1.5-6.6); NEUTROPHILS % (AUTO) 57.4 %; PLT - PLATELET COUNT 290 10^3/uL (130-450); RED BLOOD COUNT 4.43 10^6/uL (4.20-5.40); RED CELL DISTRIBUTION WIDTH 11.5 % (12.0-15.0); WHITE BLOOD COUNT 7.9 x10^3/uL (4.8-10.8)
[2022-11-03 03:20] LABS: BILIRUBIN,URINE NEGATIVE (NEGATIVE); GLUCOSE, URINE (UA) NEGATIVE (NEGATIVE); KETONES,URINE (UA) NEGATIVE (NEGATIVE); LEUKOCYTE ESTERASE, URINE NEGATIVE (NEGATIVE); NITRITE,URINE NEGATIVE (NEGATIVE); OCCULT BLOOD,URINE NEGATIVE (NEGATIVE); PROTEIN,URINE NEGATIVE (NEGATIVE); UROBILINOGEN,URINE 0.2 (NORMAL) E.U./dL (NORMAL)
[2022-11-03 03:21] LABS: CLARITY,URINE CLEAR (CLEAR); HCG UR QUAL NEGATIVE
[2022-11-03 03:22] LABS: ALBUMIN 4.2 g/dL (3.2-5.5); ALBUMIN/GLOBULIN RATIO 1.5 (1.0-2.2); BILIRUBIN,TOTAL 0.4 mg/dL (0.2-1.0); CALCIUM 9.2 mg/dL (8.5-10.3); CREATININE 0.8 mg/dL (0.4-1.0)
[2022-11-03] MEDS ORDERED: ONDANSETRON 4 MG/2 ML VIAL IVP STA ×2 (03:34→05:26)
[2022-11-03] MEDS ORDERED: SODIUM CHLORIDE 0.9% 1,000 ML IV STA (03:34)
[2022-11-03] MEDS ORDERED: HYDROmorphone 1 MG/ML CARPUJECT IVP STA ×2 (03:34→05:26)
[2022-11-03] MEDS ORDERED: KETOROLAC 30 MG/ML VIAL IVP STA (04:19)
--- NOTE | 2022-11-03 05:22 | ED Physician Documentation ---
PD HPI ABD PAIN - Stated complaint Stated Complaint: KIDNEY PX - Chief complaint Chief Complaint: Abd Pain - History obtained from History obtained from: Patient - History of Present Illness Timing - onset: Today Timing - duration: Hours Timing - details: Abrupt onset, Still present Quality: Sharp, Pain Location: RUQ Radiation: Right flank Improved by: Other (nothing) Worsened by: Other (nothing) Associated symptoms: Nausea, Vomiting, Constipation. No: Fever, Diarrhea Similar symptoms before: Has not had sx before Recently seen: Not recently seen - Additional information Additional information: 27-year-old Ana Bee begin to have some pain in her back on the right side at about dinnertime. She felt that this was just a spasm of the back at first and the pain mounted and became worse and worse. She eventually requested her to take her to the emergency department as she had intolerable pain and vomiting. She did try to take some ibuprofen it had little effect. She has not had these symptoms previously. She was not ill prior to this. She has felt that she is constipated. Review of Systems Constitutional: denies: Fever Eyes: denies: Decreased vision Ears: denies: Ear pain Nose: denies: Rhinorrhea / runny nose, Congestion Throat: denies: Sore throat Cardiac: denies: Chest pain / pressure, Palpitations Respiratory: denies: Dyspnea, Cough GI: reports: Abdominal Pain, Nausea, Vomiting, Constipation : denies: Dysuria, Frequency Skin: denies: Rash Musculoskeletal: reports: Back pain. 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 : None HEENT: None Psych: None Musculoskeletal: None Derm: None - Past Surgical History Past Surgical History: No - Present Medications Home Medications: Ambulatory Orders Medication Instructions Recorded Confirmed Vit Calc,Iron,Folic 1 tab PO DAILY 02/05/18 11/03/22 [ Vitamins] HYDROcod/ACETAM 5/325 [[place] 5/325] 1 - 2 tablet PO Q6H PRN #14 tablet 11/03/22 Lisdexamfetamine Dimesylate 20 mg PO DAILY 11/03/22 11/03/22 [Vyvanse] Ondansetron Odt [Zofran] 4 mg TL Q6H PRN #10 tablet 11/03/22 - Allergies Allergies/Adverse Reactions: Allergies Allergy/AdvReac Type Severity Reaction Status Date / Time No Known Drug Allergies Allergy Verified 11/03/22 01:43 - Social History Does the pt smoke?: No Smoking Status: Never smoker Does the pt drink ETOH?: No Does the pt have substance abuse?: No - Immunizations Immunizations are current?: Yes - POLST Patient has POLST: No PD ED PE NORMAL - Vitals Vital signs reviewed: Yes - General General: Alert and oriented X 3, Well developed/nourished, Other (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, No motor deficit, No sensory deficit, Normal speech Eye Opening: Spontaneous Motor: Obeys Commands Verbal: Oriented GCS Score: 15 - Psych Psych: Normal mood, Other (affect is painful) Results - Vitals Vitals: Vital Signs - 24 hr 11/03/22 11/03/22 11/03/22 01:40 03:23 03:38 Temperature 36.6 C Heart Rate 96 83 84 Respiratory 19 18 14 Rate Blood Pressure 126/88 H 120/89 H 131/103 H O2 Saturation 97 99 100 11/03/22 11/03/22 03:42 05:00 Temperature Heart Rate 91 58 L Respiratory 18 16 Rate Blood Pressure 120/107 H 112/83 H O2 Saturation 100 100 Oxygen O2 Source Room air - Labs Labs: Laboratory Tests 11/03/22 11/03/22 11/03/22 01:51 02:00 02:00 WBC 7.9 RBC 4.43 Hgb 14.3 Hct 40.8 MCV 92.1 MCH 32.3 H MCHC 35.0 RDW 11.5 L Plt Count 290 MPV 10.1 Neut # (Auto) 4.5 Lymph # (Auto) 2.5 King # (Auto) 0.7 Eos # (Auto) 0.1 Baso # (Auto) 0.1 Absolute Nucleated RBC 0.00 Nucleated RBC % 0.0 Sodium 138 Potassium 4.0 Chloride 107 Carbon Dioxide 26 Anion Gap 5.0 L BUN 16 Creatinine 0.8 Estimated GFR (MDRD) 85 L Glucose 120 H Calcium 9.2 Total Bilirubin 0.4 AST 27 ALT 40 Alkaline Phosphatase 56 Total Protein 7.0 Albumin 4.2 Globulin 2.8 Albumin/Globulin Ratio 1.5 Lipase 46 Urine Color YELLOW Urine Clarity CLEAR Urine pH 6.0 Ur Specific [place] >=1.030 H Urine Protein NEGATIVE Urine Glucose (UA) NEGATIVE Urine Ketones NEGATIVE Urine Occult Blood NEGATIVE Urine Nitrite NEGATIVE Urine Bilirubin NEGATIVE Urine Urobilinogen 0.2 (NORMAL) Ur Leukocyte Esterase NEGATIVE Ur Microscopic Review NOT INDICATED Urine Culture Comments NOT INDICATED Urine HCG, Qual NEGATIVE - Rads (name of study) CT ab pel Relevant Findings:: Prelim report reviewed (Impression: 1. Multiple distal right ureteral calculi associated with moderate right hydronephrosis. Nonobstructing right renal calculi are present as well. Moderate to large stool burden.), EMP independent interpretation of test Procedures - Bedside sono Bedside sono by EMP: With use of POCUS I was able to examine the right kidney it is sonographically nontender and there is evidence of hydronephrosis. PD Medical Decision Making - ED course Complexity details: reviewed results, re-evaluated patient, considered differential, d/w patient Reviewed Lab Results: We reviewed a complete blood count which was normal we reviewed chemistries which showed normal electrolytes and normal kidney and liver function. The urinalysis showed a concentrated urine and negative . CT scan of the abdomen pelvis demonstrated multiple right ureteral calculi and moderate right hydronephrosis. The patient also has a large stool burden. My interpretation of these results were that the patient's pain was likely related to movement of right ureteral stones and she does have an addition significant constipation with a right-sided stool burden. ED course: 27-year-old female presents to the emerged department with right flank pain sonographically she has evidence of hydronephrosis on the right side and a CT of the abdomen pelvis is undertaken. This demonstrates multiple stones in the distal right ureter and 3 additional stones in the right kidney. There is evidence of hydronephrosis. In addition she is found to have a significant stool load on the right side. In the emergency department the patient is administered saline Dilaudid and Zofran. She has better improvement in her pain with use of Toradol. She requires a second dose of Dilaudid as well. She is administered a dose of milk of magnesia prior to discharge. Departure - Departure Disposition: 01 Home, Self Care Clinical Impression: Ureterolithiasis Constipation Qualifiers: Constipation type: unspecified constipation type Qualified Code(s): K59.00 - Constipation, unspecified Condition: Stable Instructions: ED Constipation, ED Stone Renal W Colic Follow-Up: MYRIAM Pulido [Provider Group] Prescriptions: HYDROcod/ACETAM 5/325 [[place] 5/325] 1 - 2 tablet PO Q6H PRN #14 tablet PRN Reason: Pain Ondansetron Odt [Zofran] 4 mg TL Q6H PRN #10 tablet PRN Reason: Nausea / Vomiting Comments: Ana, today it looks like there are several stones in the ureter that are just getting ready to pass. The recommendation is to increase your level of fluids. Treatment of the pain with pain medication either ibuprofen or the [place] that I have prescribed, or both, are indicated for this acute pain. I have also E scribed some Zofran for nausea. In addition you are significantly constipated and the recommendation is to use some milk of magnesia. There are 3 stones remaining in the right kidney and they will not give you a problem until the try to pass. Once stone is about 5 mm in size and that may have some difficulty passing. The recommendation is to follow-up with your primary care doctor within 4 days if you have not passed these stones. The reason for the follow-up at that point is referral to urology for potential removal of the stones.
[2022-11-03] MEDS ORDERED: MAGNESIUM HYDROXIDE 2,400 MG/30 ML UDC PO STA (05:48)
[2022-11-03 06:15] VITALS: BP 104/75
--- NOTE | 2022-11-03 08:50 | CT Report ---
PROCEDURE: ABDOMEN/PELVIS WO INDICATIONS: R flank pain TECHNIQUE: Noncontrast 5 mm thick sections acquired from the diaphragms to the symphysis. 5 mm coronal and sagi ttal reformats were then performed. For radiation dose reduction, the following was used: automated exposure control, adjustment of mA and/or kV according to patient size. COMPARISON: None. FINDINGS: Image quality: Excellent. Lung bases and heart: Unremarkable. Kidneys: Moderate right hydronephrosis and mild right perinephric stranding. There are 4 stones in ri ght kidney measuring 1-5 mm. The largest stone measures [address] density. Multiple stones a re seen in the distal right ureter measuring up to 5 mm. There is a tiny 1 mm stone in the superior p ole of the left kidney. No left hydronephrosis. Liver: Unremarkable. Gallbladder and biliary tree: Spleen: Unremarkable. Pancreas: Unremarkable. Adrenals: Unremarkable. Bowel and peritoneum: No bowel distension. No pathologic free fluid. Lymph nodes: No central or retroperitoneal adenopathy. Vessels: Unremarkable. PELVIS Reproductive organs: Unremarkable. Bladder: Unremarkable. Lymph nodes: Unremarkable. Bones: No aggressive osseous abnormality. Mild scoliosis. Other: Tiny fat-containing umbilical hernia. IMPRESSION: 1. Multiple obstructive stones in the distal right ureter causing moderate right hydronephrosis. 2. Bilateral nonobstructive renal calculi. No significant discrepancy with the preliminary interpretation. Reviewed by: James Lam MD on 11/03/2022 8:49 AM PDT Approved by: James Lam MD on 11/03/2022 8:49 AM PDT Station ID: [id number]
== END 2022-11-03 06:43 | disposition home or self-care (01) ==
LOC: ED 01:33
DX: N13.2 Hydronephrosis with renal and ureteral calculous obstruction (principal); K59.00 Constipation, unspecified; Z79.899 Other long term (current) drug therapy
CPT/HCPCS: 36415; 74176; 80053; 81003; 81025; 83690; 85025; 96374; 96375; 96376; 99284; A9270; J1170; 81001; 87086